=== PATIENT | male | born 1980 | race Caucasian/White ===

== ENCOUNTER → 2019-07-30 | Outpatient (CLI) | payer MEDICAID, SELFPAY | PROVIDERS: Family Provider Physician Assistant; Visit Provider Nurse Practitioner | DX: F43.12 Post-traumatic stress disorder, chronic (principal); F41.1 Generalized anxiety disorder; F41.0 Panic disorder [episodic paroxysmal anxiety] ==

== ENCOUNTER → 2019-08-21 08:51 | Outpatient (BNVA) | payer MEDICAID, SELFPAY | PROVIDERS: Family Provider Physician Assistant; Referring Provider Physician Assistant; Visit Provider Internal Medicine Rheumatology | DX: M10.9 Gout, unspecified (principal); Z79.899 Other long term (current) drug therapy; G47.30 Sleep apnea, unspecified; K21.0 Gastro-esophageal reflux disease with esophagitis | CPT/HCPCS: 36415; 80076; 82565; 84550; 85651; 86140; 99204 ==

== ENCOUNTER → 2019-08-21 10:05 | Outpatient (BNVA) | payer MEDICAID, SELFPAY | PROVIDERS: Family Provider Physician Assistant; Referring Provider Physician Assistant; Visit Provider Internal Medicine Rheumatology | DX: E79.0 Hyperuricemia without signs of inflammatory arthritis and tophaceous disease (principal); Z79.899 Other long term (current) drug therapy; G47.30 Sleep apnea, unspecified; K21.0 Gastro-esophageal reflux disease with esophagitis | CPT/HCPCS: 85025 ==

== ENCOUNTER 2019-09-12 11:00 | Emergency (ER) | payer MEDICAID, SELFPAY ==
[2019-09-12 11:19] VITALS: BP 141/112; PULSE 96; RESP 20; TEMP 36.5; O2SAT 95; BMI 43.4
--- NOTE | 2019-09-12 11:26 | ED_ITS ---
Entered by Forest Horan, acting as scribe for Severo Duron DO Sep 12, 2019 11:00 HPI - Extremity Problem General: Chief complaint: Extremity Problem,Nontraumatic Stated complaint: Right big toe pain Time Seen by Provider: 09/12/19 11:25 History of Present Illness: HPI Narrative: 39 yo male presents with right big toe pain. Pt states that he has gout issues. Exquisite pain began 2 days ago has been getting progressively worse. He recently had his allopurinol increase his primary care doctor. His initial medication list that list a Medrol Dosepak but he is actually not taking it per his report. MD Complaint: extremity pain Pain Consistency: constant Location: toe Quality: aching Radiation: none Exacerbating factors: nothing Associated symptoms: Reports no associated symptoms; Deny chest pain, fever(s) or rash Review of Systems Const: Denies: fever, chills, body aches, fatigue, malaise or night sweats Eyes: Denies: change in vision or blurry vision ENMT: Denies: throat pain, oral sores/lesions, dental pain, nasal discharge or nasal congestion Card: Denies: chest pain, palpitations, irregular heart rhythm, edema, syncope, shortness of breath on exertion, shortness of breath when lying down or leg pain with exertion Resp: Denies: shortness of breath, productive cough, non-productive cough or wheezing GI: Denies: abdominal pain, nausea, vomiting, vomiting blood, coffee grounds in vomit, difficulty swallowing, heartburn/indigestion, diarrhea, constipation, cramping, blood in stool or black tarry stool : Denies: flank pain, difficulty urinating, painful urination, urinary frequency, urinary urgency, urinary incontinence or blood in urine Musc: Denies: neck pain, back pain, extremity pain, extremity swelling, joint pain or joint swelling Skin/Breast: Denies: rash, itching or redness Neuro: Denies: headache, numbness in extremities, weakness in extremities, changes in sensation, lack of coordination, difficulty walking, frequent falls, dizziness, vertigo or confusion Psych: Denies: anxiety, depression, loss of interest, visual hallucinations, auditory hallucinations, suicidal ideation or homicidal ideation Endo: Denies: excessive urination, excessive thirst, tired all the time or cold intolerance Chandana/Lymph: Denies: easy bruising, easy bleeding, petechiae, enlarged lymph nodes or tender lymph nodes PFSH ED PFSH: Statuses (acute, chronic, etc) shown below reflect problem list status as previously entered and may not be historically accurate Medical History (Updated 09/12/19 @ 11:41 by Severo Duron DO) Gout flare (Acute) Gout, arthritis (Acute) High risk medication use (Acute) Hyperuricemia (Acute) Reflux esophagitis (Acute) Sleep apnea (Acute) Surgical History (Updated 09/12/19 @ 11:29 by Forest Horan) H/O toe surgery (Acute) Family History (Updated 08/07/19 @ 10:41 by Zahra Hernandez RN) Other Cancer Diabetes Hyperlipidemia Hypertension Denies family history of Anesthesia complication Bleeding disorder Social History (Updated 08/21/19 @ 09:19 by Briana Goncalves LPN) Smoking and tobacco status: never smoked Quit status (tobacco): quit date established Alcohol intake: never History of recent travel: No Physical Exam Const: COMMON NORMALS: average body habitus, oriented x3 and alert GENERAL APPEARANCE: cooperative, comfortable, well kempt and well developed NUTRITIONAL APPEARANCE: obese ORIENTATION/CONSCIOUSNESS: Yes awake, Yes oriented to person and Yes oriented to place HENMT: COMMON NORMALS: normocephalic, head/scalp atraumatic, EAC's normal, TM's normal bilaterally, external nose normal, moist oral mucous membranes and oropharynx normal HEAD & SCALP: normocephalic and atraumatic NOSE: external nose normal EXTERNAL AUDITORY CANAL: EAC's normal TYMPANIC MEMBRANE: TM's normal bilaterally MOUTH: oral and palatal mucosa normal, lip normal and tongue normal THROAT: posterior oropharynx normal and tonsils normal Eye: COMMON NORMALS: PERRL, EOMs intact bilaterally, conjunctivae normal and no scleral icterus CONJUNCTIVA: Yes conjunctivae normal PUPIL: Yes PERRL Neck/C-Spine: COMMON NORMALS: full ROM, no lymphadenopathy, supple, no meningeal signs and thyroid normal THYROID: thyroid normal and asymmetrical Lymph: LYMPHATIC: no lymphadenopathy noted Resp: COMMON NORMALS: normal respiratory effort, no retractions, no use of accessory muscles and clear to auscultation bilaterally AUSCULTATION: clear to auscultation bilaterally Cardio: COMMON NORMALS: regular rate and regular rhythm RATE: regular rate RHYTHM: regular rhythm HEART SOUNDS: no murmurs GI: COMMON NORMALS: normal to inspection, nondistended, normoactive bowel sounds, soft to palpation and no hepatosplenomegaly PALPATION: Yes soft and Yes no hepatosplenomegaly : COMMON NORMALS: Yes no CVA tenderness BLADDER/KIDNEY EXAM: Yes no CVA tenderness Back/Pelvis: COMMON NORMALS: no CVA tenderness LUMBAR SPINE/LOWER BACK: Yes normal to inspection Extremity: NARRATIVE EXTREMITY EXAM: Right first MP joint severe pain and tenderness mild erythema and swelling no deformity no ecchymosis. Neuro: COMMON NORMALS: oriented x3 SENSORIUM/ORIENTATION: Yes alert, Yes oriented to person and Yes oriented to place MENINGEAL SIGNS: Yes no meningeal signs Psych: APPEARANCE: Yes well kempt Skin: COMMON NORMALS: no rashes or lesions noted and skin turgor normal GENERAL SKIN EXAM: no rashes or lesions noted and turgor normal Course Vital Signs: Vital signs: Vital Signs Temperature 97.7 F 09/12/19 11:19 Pulse Rate 17 L 09/12/19 12:02 Respiratory Rate 89 H 09/12/19 12:02 Blood Pressure 139/98 09/12/19 12:02 Pulse Oximetry 94 09/12/19 12:02 Discharge Plan Discharge Patient Disposition: Home, Self-Care Clinical Impression: Gout, arthritis Condition: Stable Prescriptions: New prednisone 20 mg tablet 20 mg PO BID 5 Days Qty: 10 RF: 0 hydrocodone-acetaminophen 5-325 mg tablet 1 tab PO Q6H PRN (Reason: pain) Qty: 10 RF: 0 Held methylprednisolone [Medrol (Teddy)] 4 mg tablets,dose pack See Rx Instructions PO PER PKG DIR RF: 0 Hold Instructions: Resume on 09/17/19. hold while on prednisone - follow up with PCP to resume No Action omeprazole 40 mg capsule,delayed release(DR/EC) 40 mg PO BID RF: 0 Symbicort 160-4.5 mcg/actuation HFA aerosol inhaler 1 puff INHALATION BID PRNRF: 0 cholestyramine (with sugar) [Questran] 4 gram powder 4 gm PO DAILY RF: 0 hydroxyzine HCl 50 mg tablet 50 mg PO TID RF: 0 quetiapine [Seroquel] 100 mg tablet 100 mg PO QDAY RF: 0 prednisone 10 mg tablet 20 mg PO QDAY 5 Days Qty: 10 RF: 2 allopurinol 100 mg tablet 100 mg PO DAILY Qty: 30 RF: 1 allopurinol 300 mg tablet 300 mg PO DAILY Qty: 30 RF: 1 colchicine 0.6 mg tablet 0.6 mg PO BID Qty: 60 RF: 3 Discharge Orders: Discharge Order (Routine); Ordered 09/12/19 Ordered By: Severo Duron Referrals: Juana Landeros PA [Family Provider] - Activity Restrictions/Additional Instructions: Follow-up with your PCP early next week. Return if has problems. Discharge Date/Time: 09/12/19 12:02 Coding Level of Care Code ED Bingo Clerk for Chg Fwd Exam Problem Focused The documentation recorded by the Aung pate Kialy, accurately reflects the service I personally performed and the decisions made by Domi jones Curtis L, DO Sep 12, 2019 11:00
[2019-09-12 11:40] VITALS: RESP 18
[2019-09-12 12:02] VITALS: BP 139/98; PULSE 17; RESP 89; O2SAT 94
== END 2019-09-12 12:02 | disposition home or self-care (01) ==
PROVIDERS: Emergency Provider Family Medicine; Family Provider Physician Assistant
DX: M10.9 Gout, unspecified (principal)
CPT/HCPCS: 96372; 99281; 99283; J2930

== ENCOUNTER → 2019-11-20 07:52 | Outpatient (BNVA) | payer MEDICAID, SELFPAY | PROVIDERS: Family Provider Physician Assistant; Visit Provider Nurse Practitioner | DX: F43.12 Post-traumatic stress disorder, chronic (principal); F41.1 Generalized anxiety disorder; F41.0 Panic disorder [episodic paroxysmal anxiety] | CPT/HCPCS: 99214 ==

== ENCOUNTER → 2020-01-04 09:06 | Outpatient (BNVA) | payer MEDICAID, SELFPAY | PROVIDERS: Family Provider Physician Assistant; Visit Provider Nurse Practitioner | DX: F43.12 Post-traumatic stress disorder, chronic (principal); F41.1 Generalized anxiety disorder; F41.0 Panic disorder [episodic paroxysmal anxiety] | CPT/HCPCS: 99213 ==

== ENCOUNTER → 2020-03-25 08:27 | Outpatient (BNVA) | payer MEDICAID, SELFPAY | PROVIDERS: Family Provider Physician Assistant; Visit Provider Nurse Practitioner | DX: F43.12 Post-traumatic stress disorder, chronic (principal); F41.1 Generalized anxiety disorder; F41.0 Panic disorder [episodic paroxysmal anxiety]; F12.20 Cannabis dependence, uncomplicated | CPT/HCPCS: 99213 ==

== ENCOUNTER 2020-09-09 11:29 | Emergency (ER) | payer MEDICAID, SELFPAY ==
--- NOTE | 2020-09-09 11:40 | W.ED.GENADLT ---
HPI - General Adult General: Chief complaint: General Medical Stated complaint: Gout Time Seen by Provider: 09/09/20 11:33 Review of Systems General: Reports: 10 or more systems reviewed and unremarkable except in HPI and below Musc: Reports: extremity pain, joint pain, joint swelling, joint redness and joint warmth PFSH ED PFSH: Medical History Cannabis dependence, uncomplicated Generalized anxiety disorder Gout flare Gout, arthritis High risk medication use Hyperuricemia Panic disorder [episodic paroxysmal anxiety] Post-traumatic stress disorder, chronic Reflux esophagitis Sleep apnea Surgical History H/O toe surgery Family History Other Cancer Diabetes Hyperlipidemia Hypertension Denies family history of Anesthesia complication Bleeding disorder Social History Smoking and tobacco status: never smoked Quit status (tobacco): quit date established Alcohol intake: never History of recent travel: No Physical Exam Const: COMMON NORMALS: no acute distress, patient oriented x3, no limitations and alert GENERAL APPEARANCE: cooperative and comfortable ORIENTATION/CONSCIOUSNESS: Yes awake, Yes oriented to person, Yes oriented to place and Yes oriented to time HENMT: COMMON NORMALS: normocephalic, atraumatic, external ears normal, EAC's normal, TM's normal bilaterally and Normal external nose present HEAD & SCALP: normal to inspection, normocephalic and atraumatic FACE & SINUS: normal facial exam, sinuses nontender and face symmetric NOSE: Normal external nose present, Normal nares present and No nasal discharge present EXTERNAL EAR: Yes external ears normal EXTERNAL AUDITORY CANAL: EAC's normal TYMPANIC MEMBRANE: TM's normal bilaterally MOUTH: Normal oral and palatal mucosa present, lip normal and tongue normal THROAT: posterior oropharynx normal, tonsils normal and uvula midline Eye: COMMON NORMALS: Equal, round and reactive pupils present, EOMs intact bilaterally and conjunctivae normal GENERAL EYE: appearance normal, both eyes and all related structures and normal light reflex EYELID: eyelids normal CONJUNCTIVA: Yes conjunctivae normal PUPIL: Yes Equal, round and reactive pupils present EOM: Yes EOM abnormal DIRECT OPHTHALMOSCOPY: Yes normal light reflex Neck/C-Spine: COMMON NORMALS: full ROM, no lymphadenopathy, supple, no meningeal signs, no JVD and Thyroid normal GENERAL: Yes normal visual inspection THYROID: Thyroid normal CERVICAL SPINE: Yes cervical ROM normal and Yes normal cervical lordosis Lymph: LYMPHATIC: no lymphadenopathy noted Chest: COMMONS NORMALS: normal inspection of the chest and normal palpation of entire chest wall Resp: COMMON NORMALS: normal respiratory effort, No retractions and clear to auscultation bilaterally AUSCULTATION: clear to auscultation bilaterally Cardio: COMMON NORMALS: no JVD, regular rate, regular rhythm, S1 normal heart sound present, S2 normal heart sound present, No gallops present (Cardio), No clicks present (Cardio), No murmurs present (Cardio), No rub (Cardio) and Peripheral pulses 2+ throughout RATE: regular rate RHYTHM: regular rhythm HEART SOUNDS: S1 normal heart sound present and S2 normal heart sound present PERIPHERAL PULSES: Peripheral pulses 2+ throughout GI: COMMON NORMALS: Normal to inspection, nondistended, normoactive bowel sounds present, Soft to palpation, non-tender and no masses PALPATION: Yes Soft to palpation : COMMON NORMALS: Yes no CVA tenderness BLADDER/KIDNEY EXAM: Yes no CVA tenderness Back/Pelvis: COMMON NORMALS: no CVA tenderness, thoracic and lumbar spine normal to inspection, no thoracic nor lumbar tenderness and thoraco-lumbar ROM normal Extremity: COMMON NORMALS: normal to inspection, full ROM, capillary refill normal, no joint enlargement, no clubbing, cyanosis or edema, no calf tenderness and no pedal edema GENERAL: Yes normal exam except as noted LEFT LOWER EXTREMITY: Yes foot & digits Left foot and digits: Yes inspection (redness, warmth, swelling) Neuro: COMMON NORMALS: patient oriented x3, moves all extremities, no focal motor deficits, no sensory deficits noted and gait normal SENSORIUM/ORIENTATION: Yes alert, Yes oriented to person, Yes oriented to place and Yes oriented to time MENINGEAL SIGNS: Yes no meningeal signs Psych: COMMON NORMALS: mental status grossly normal, Normal thought process present, cooperative, normal affect, speech normal and activity/motor behavior normal SPEECH: Yes normal speech THOUGHT PROCESS: Normal thought process present Skin: COMMON NORMALS: no rashes or lesions noted, no wounds and turgor normal GENERAL SKIN EXAM: no rashes or lesions noted and turgor normal Course ED course: Pt presents with gout flare up to the left foot. He ran out of his allpurinol and needs to reestablish a PCP in this area. We will prescribe his allpurinol and help him to establish a PCP. Will also give colchicine and decadron to help alleviate his acute symptoms. Vital Signs: Vital signs: Vital Signs Temperature 98.4 F 09/09/20 11:42 Pulse Rate 86 09/09/20 11:42 Respiratory Rate 14 09/09/20 11:42 Blood Pressure 141/91 09/09/20 11:42 Pulse Oximetry 97 09/09/20 11:42 Discharge Plan Discharge Patient Disposition: Home Clinical Impression: Gout, arthritis Condition: Stable Prescriptions: New allopurinol 100 mg tablet 100 mg PO DAILY Qty: 20 RF: 0 No Action methylprednisolone [Medrol (Teddy)] 4 mg tablets,dose pack See Rx Instructions PO PER PKG DIR RF: 0 Hold Instructions: Resume on 09/17/19. hold while on prednisone - follow up with PCP to resume omeprazole 40 mg capsule,delayed release(DR/EC) 40 mg PO BID RF: 0 Symbicort 160-4.5 mcg/actuation HFA aerosol inhaler 1 puff INHALATION BID PRNRF: 0 cholestyramine (with sugar) [Questran] 4 gram powder 4 gm PO DAILY RF: 0 prednisone 10 mg tablet 20 mg PO QDAY 5 Days Qty: 10 RF: 2 quetiapine [Seroquel] 100 mg tablet 100 mg PO .COMPLEX Qty: 90 RF: 1 allopurinol 100 mg tablet 100 mg PO DAILY Qty: 30 RF: 1 allopurinol 300 mg tablet 300 mg PO DAILY Qty: 30 RF: 1 colchicine 0.6 mg tablet 0.6 mg PO BID Qty: 60 RF: 3 hydroxyzine HCl 50 mg tablet 100 mg PO TID PRN (Reason: anxiety) Qty: 180 RF: 0 hydrocodone-acetaminophen 5-325 mg tablet 1 tab PO Q6H PRN (Reason: pain) Qty: 10 RF: 0 Discharge Orders: Discharge ED (Routine); Ordered 09/09/20 Ordered By: Christal Bowles Discharge Diet: Usual diet Discharge Activity: Increase activity as tolerated Activity Restrictions/Additional Instructions: Increase water intake, decrease soda intake. Supplementation with Tumeric may be beneficial to help as a natural anti inflammatory. Try to avoid large amounts of meat, especially seafood and red meat. Ensure a clean diet with lots of vegetables. Think, eat the rainbow! Avoid high starchy foods like potatoes and avoid alcohol. Follow up with PCP and bariatric physician if you feel that is a good step in your overall health. Coding Level of Care Code ED Item Processing Clerk for Tobias Alvarez
[2020-09-09 11:42] VITALS: BP 141/91; PULSE 86; RESP 14; TEMP 36.9; O2SAT 97; BMI 43.4
[2020-09-09] MEDS: dexamethasone 10 mg/mL INJ IM (12:25)
[2020-09-09] MEDS: colchicine 0.6 mg Tablet 1.2 MG PO (12:25)
[2020-09-09] MEDS: colchicine 0.6 mg Tablet PO (12:34)
--- NOTE | 2020-09-09 13:51 | DCPLANNER ---
real estate operations manager was given message to schedule PCP appointment. real estate operations manager called patient and patient stated he would call [facility] to schedule appt with Dr. Beauchamp. real estate operations manager was also given message to schedule follow up with general surgery. real estate operations manager emailed pt's information to both Ana Lilia and Ale. Pt's information will be printed and reviewed. Clinic will call pt with appt information.
--- NOTE | 2020-09-10 09:40 | DCPLANNER ---
Patient has a follow up appointment scheduled for , September 18, [address] at 2:[address] Ashby. Clinic will call patient with appointment information.
--- NOTE | 2020-09-16 11:32 | DCPLANNER ---
subcontract manager received message to schedule appointment with Dr. Ashby for bariatric surgery. subcontract manager emailed Anna. They will follow up with patient and provide patient with appointment information.
--- NOTE | 2020-10-22 13:07 | DCPLANNER ---
Patient had a followup appointment scheduled with general surgery - appointment was rescheduled for a later date.
== END 2020-09-09 12:37 | disposition home or self-care (01) ==
PROVIDERS: Emergency Provider Nurse Practitioner Family
DX: M10.9 Gout, unspecified (principal); Z79.52 Long term (current) use of systemic steroids
CPT/HCPCS: 12345; 96372; 99281; 99283; J1100

== ENCOUNTER 2020-11-02 12:14 | Emergency (ER) | payer MEDICAID, SELFPAY ==
[2020-11-02 12:18] VITALS: BP 131/91; PULSE 100; RESP 16; TEMP 36.2; O2SAT 98; BMI 43.4
--- NOTE | 2020-11-02 12:35 | XRR_ITS ---
PROCEDURE INFORMATION: Exam: XR Lumbosacral Spine Exam date and time: 11/02/2020 1:37 PM Age: 40 years old Clinical indication: Injury or trauma; Fall; Blunt trauma (contusions or hematomas); Additional info: Fell, lbp TECHNIQUE: Imaging protocol: XR of the lumbosacral spine. Views: 2 or 3 views. COMPARISON: CT abdomen pelvis w con* [id number] 01/02/2019 7:25 PM FINDINGS: Bones/joints: Normal. No acute fracture. Normal alignment. Soft tissues: Unremarkable. XR/XR lumbar spine 2-3V* [id number] IMPRESSION: No acute findings.
--- NOTE | 2020-11-02 12:35 | XRR_ITS ---
PROCEDURE INFORMATION: Exam: XR Right Hip Exam date and time: 11/02/2020 12:36 PM Age: 40 years old Clinical indication: Injury or trauma; Fall; Blunt trauma (contusions or hematomas); Right; Hip; Additional info: Fall, RT hip pain TECHNIQUE: Imaging protocol: XR Right hip. Views: 2 or 3 views hip with pelvis when performed. COMPARISON: CT abdomen pelvis w con* [id number] 01/02/2019 7:25 PM FINDINGS: Bones/joints: Unremarkable. No acute fracture. Soft tissues: Unremarkable. XR/XR hip RT 2-3V wo/w pel* [id number] IMPRESSION: No acute findings.
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
[2020-11-02] MEDS: orphenadrine 30 mg/mL Inj 2 mL 60 MG IM (13:02)
[2020-11-02] MEDS: acetaminophen 500 mg Tablet 1000 MG PO (13:02)
[2020-11-02] MEDS: lidocaine 5% Patch 1 PATCH TOPICAL (14:20)
[2020-11-02 14:23] VITALS: BP 106/71; PULSE 83; RESP 16; O2SAT 97
== END 2020-11-02 14:38 | disposition home or self-care (01) ==
PROVIDERS: Emergency Provider Nurse Practitioner Family; PCP Physician Assistant
DX: M54.41 Lumbago with sciatica, right side (principal); M54.10 Radiculopathy, site unspecified
CPT/HCPCS: 72100; 73502; 96372; 99283; J2360

== ENCOUNTER 2021-01-06 20:00 | Outpatient (CLI) | payer MEDICAID, SELFPAY | END 2021-01-06 20:01 | disposition home or self-care (01) | LOC: SLEEP 01-07 09:06 | PROVIDERS: PCP Physician Assistant; Visit Provider Physician Assistant | DX: G47.10 Hypersomnia, unspecified (principal); G47.33 Obstructive sleep apnea (adult) (pediatric); R09.02 Hypoxemia | CPT/HCPCS: 95810 ==

== ENCOUNTER 2021-03-13 01:39 | Inpatient (IN) | payer MEDICAID, SELFPAY ==
[2021-03-13] VITALS (64 sets, daily range): BP systolic 105–162; BP diastolic 75–118; PULSE 60–99; RESP 10–27; TEMP 36.7–37.1; O2SAT 90–99; BMI 42.5; BMI 43.8
--- NOTE | 2021-03-13 02:54 | XRR_ITS ---
PROCEDURE INFORMATION: Exam: XR Chest Exam date and time: 03/13/2021 2:54 AM Age: 41 years old Clinical indication: Sternal or substernal pain; Patient HX: Substernal chest pain this a. M. TECHNIQUE: Imaging protocol: XR of the chest. Views: 1 view. Total images: 1 COMPARISON: CR Chest 1 [place] [id number] 11/21/2018 7:32 AM FINDINGS: Lungs: Unremarkable. No consolidation. Pleural spaces: Unremarkable. No pleural effusion. No pneumothorax. Heart/Mediastinum: Unremarkable. No cardiomegaly. Bones/joints: Unremarkable. XR/XR chest 1V portable [id number] IMPRESSION: No acute findings.
--- NOTE | 2021-03-13 02:55 | ECG_ITS ---
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1980 Requested By: Claudette Mccurdy Order Number: [id number] Reading MD: HORTENCIA PRITCHARD Measurements Intervals [place] Rate: 76 P: 45 SC: 166 QRS: 41 QRSD: 116 T: 73 QT: 376 QTc: 425 Interpretive Statements SINUS RHYTHM LOW QRS VOLTAGE IN PRECORDIAL LEADS [QRS DEFLECTION < 1.0 mV IN CHEST LEADS] MODERATE INTRAVENTRICULAR CONDUCTION DELAY [110+ ms QRS DURATION] Compared to ECG 03/13/2021 04:06:05 No significant changes Electronically Signed On 03-13-2021 19:27:16 CDT by HORTENCIA PRITCHARD [id number]
[2021-03-13 03:14] LABS: Basophils # 0.1 10^3/uL (0.0-0.1); Basophils % 0.8 %; Eosinophils # 0.1 10^3/uL (0.0-0.8); Hematocrit 49.3 % (42.0-52.0); Lymphocytes # 3.8 10^3/uL (0.8-4.8); Lymphocytes % 32.8 %; Mean Corpuscular HGB Conc 32.5 g/dL (30.0-36.0); Mean Corpuscular Hemoglobin 29.1 pg (28.0-34.0); Mean Corpuscular Volume 89.6 fL (80-94); Mean Platelet Volume 11.5 fL (7.4-10.4); Monocytes # 1.3 10^3/uL (0.2-0.9); Monocytes % 11.1 %; Nucleated Red Blood Cells % 0 %; Platelet Count 277 10^3/cmm (130-400); Red Cell Distribution Width 13.5 % (12.1-15.1); White Blood Count 11.7 10^3/uL (4.0-10.0)
[2021-03-13 03:32] LABS: Alanine Aminotransferase 48 U/L (0-41); Albumin Level 4.3 g/dL (3.5-5.2); Alkaline Phosphatase 79 IU/L (40-130); Anion Gap 13.8 (5-19); Aspartate Amino Transferase 33 U/L (0-40); Blood Urea Nitrogen 10 mg/dL (6-20); Calcium 8.6 mg/dL (8.5-10.5); Carbon Dioxide 29 mmol/L (22-29); Chloride 101 mmol/L (98-107); Globulin 2.2 g/dL (1.3-4.6); Glucose 108 mg/dL (65-115); Osmolality Calculated 290 mOsm/kg (285-295); Potassium 3.8 mmol/L (3.5-5.1); Sodium 140 mmol/L (136-145); Total Bilirubin 0.2 mg/dL (0.15-1.2); Total Protein 6.5 g/dL (6.6-8.7)
[2021-03-13 03:34] LABS: Troponin(5th) Baseline 6 ng/L (0-15)
--- NOTE | 2021-03-13 03:46 | W.ED.GENADLT ---
HPI - General Adult General: Chief complaint: ER Hold Stated complaint: CP/SOB/Jaw Pain Time Seen by Provider: 03/13/21 01:58 History of Present Illness: HPI narrative: CC: Chest Pain HPI: This is a [41] yo patient w/ family hx of cardiac disease, positive stress from [address] Pollack presenting to the ED w/ acute onset intermittent substernal chest pain x [2] hours,+N/V. Patient is due for stent placement on 03/25/2021/ Pain is not tearing in nature and does not radiate to the back. Endorse nausea and vomiting or decreased PO intake. Denies any recent sympathomimetic drug use. Patient denies any cough. Denies palpitations, syncope symptoms. Pain not positional. Norecent immobility, surgery, unilateral leg swelling, or prior PE. Patient denies any orthopnea, paroxysmal nocturnal dyspnea, weight gain, or increased leg swellings. Onset: 2 hrs ago Duration: ongoing for the last 2 hrs Location: home Severity: moderate Review of Systems Narrative: Constitutional: No fever, no chills. HEENT: No vision changes, no sore throat. CV: +chest pain, no palpitations. PULM: No cough, no dyspnea. GI: No abdominal pain, + N/+V/-D. : No dysuria, no frequency, no hematuria. MSKEL: No arthralgias, no edema. SKIN: No new rashes, no lesions. NEURO: No headache, no focal weakness. HEME: No easy bleeding or bruising. PSYCH: No change in mood or affect. [facility] ED PFSH: Medical History (Updated 03/13/21 @ 05:12 by Елена Menjivar MD) Cannabis dependence, uncomplicated Chronic bilateral low back pain with bilateral sciatica Depression with anxiety Generalized anxiety disorder GERD (gastroesophageal reflux disease) Gout Gout flare Gout, arthritis High risk medication use Hyperuricemia Morbid obesity Panic disorder [episodic paroxysmal anxiety] Post-traumatic stress disorder, chronic PTSD (post-traumatic stress disorder) Reflux esophagitis Sleep apnea Surgical History (Updated 03/13/21 @ 05:12 by Елена Menjivar MD) H/O toe surgery History of cholecystectomy History of circumcision History of esophagogastroduodenoscopy (EGD) (~01/2019) History of sinus surgery Hx of appendectomy Hx of tonsillectomy Family History Other Cancer Diabetes Hyperlipidemia Hypertension Denies family history of Anesthesia complication Bleeding disorder Social History Smoking and tobacco status: former smoker Quit status (tobacco): quit date established Alcohol intake: never History of recent travel: No Physical Exam Narrative: EXAM NARRATIVE: Head: Atraumatic, normocephalic Eyes: PERRL, EOMI, conjunctiva without injection ENT: Throat without erythema, lesions or exudate, MMM NECK: Supple, trachea midline, no JVD LUNGS: LCTA CV: RRR, S1,S2, no murmurs, rubs, gallops. 2+ peripheral pulses in UEs ABDOMEN: Soft, nontender, nondistended, BS x4, no rigidity, no guarding, no rebound EXTREMITY: Normal ROM, no pitting edema, no calf tenderness to palpation SKIN: No rash or erythema NEURO: Awake and alert. No focal motor deficits. PSYCH: Normal mood and affect. Course Vital Signs: Vital signs: Vital Signs Temperature 98.1 F 03/13/21 01:48 Pulse Rate 70 03/13/21 05:41 Respiratory Rate 12 03/13/21 05:41 Blood Pressure 105/86 03/13/21 05:41 Pulse Oximetry 97 03/13/21 05:41 MDM - General Adult MDM Narrative: Medical decision making narrative: 41yo patient w/ familg hx of cardiac diseases to the ED With acute substernal chest pain X 2 hrs with hx of similar prior pain. Currently chest pain free. Given History And Exam today I have moderate to high suspicion for ACS/UA/NSTEMI. Today, I have no suspicion for pneumothorax, pneumonia, pulmonary embolus, tamponade, aortic dissection or other emergent problem as a cause for this presentation. ECG did not show any signs of acute STEMI. Workup: ECG, CXR, CBC, BMP, Troponin Intervention: ASA 325mg Findings: ECG: NSR, RR opf 92, GA/QRS/QT wnl, No overt evidence of STEMI, no hyperacute T waves, localizable STD or T wave inversions. No evidence of Brugada?s sign, delta wave, epsilon wave, significantly prolonged QTc, or malignant arrhythmia. No Q waves. Troponin: Negative x 1 Other Labs unremarkable for emergent problems. [4:00] On reassessment, the patient is currently chest pain free. S/p aspirin 325mg. Will defer antiplatelet and anticoagulation to the inpatient team. Pending repeat troponin. HDS, AAOx3, no signs of respiratory distress, without refractory chest pain, no signs of malignant dysrhythmia on clinical medical transcriptionist (VT/VF). Disposition: Inpatient admission. Lab Data: Labs: Lab Results 03/13/21 03/13/21 03/13/21 Range/Units 02:03 02:03 02:03 WBC 11.7 H (4.0-10.0) 10^3/ uL RBC 5.50 H (4.1-5.3) 10^6/u L Hgb 16.0 (11.7-16.6) g/dL Hct 49.3 (42.0-52.0) % MCV 89.6 (80-94) fL MCH 29.1 (28.0-34.0) pg MCHC 32.5 (30.0-36.0) g/dL RDW 13.5 (12.1-15.1) % Plt Count 277 (130-400) 10^3/c mm MPV 11.5 H (7.4-10.4) fL Neut % (Auto) 54.0 % Lymph % (Auto) 32.8 % [place] % (Auto) 11.1 % Eos % (Auto) 1.0 % Baso % (Auto) 0.8 % Neut # (Auto) 6.30 (1.8-7.7) 10^3/u L Lymph # (Auto) 3.8 (0.8-4.8) 10^3/u L [place] # (Auto) 1.3 H (0.2-0.9) 10^3/u L Eos # (Auto) 0.1 (0.0-0.8) 10^3/u L Baso # (Auto) 0.1 (0.0-0.1) 10^3/u L Nucleated RBC % (a uto) 0 % Nucleated RBCs # 0.0 /100WBC D-Dimer 0.33 (0-0.59) ug/mIFE U Sodium 140 (136-145) mmol/L Potassium 3.8 (3.5-5.1) mmol/L Chloride 101 (98-107) mmol/L Carbon Dioxide 29 (22-29) mmol/L Anion Gap 13.8 (5-19) BUN 10 (6-20) mg/dL Creatinine 0.9 (0.7-1.2) mg/dL GFR Calculation 93.0 (90-130) mL/min Glucose 108 (65-115) mg/dL Estimat Average Gl ucose Hemoglobin A1c (4.0-6.0) % Calculated Osmolal ity 290 (285-295) mOsm/k g Calcium 8.6 (8.5-10.5) mg/dL Total Bilirubin 0.2 (0.15-1.2) mg/dL AST 33 (0-40) U/L ALT 48 H (0-41) U/L Alkaline Phosphata se 79 (40-130) IU/L Troponin T Baselin e (0-15) ng/L Total Protein 6.5 L (6.6-8.7) g/dL Albumin 4.3 (3.5-5.2) g/dL Globulin 2.2 (1.3-4.6) g/dL 03/13/21 03/13/21 Range/Units 02:03 02:03 WBC (4.0-10.0) 10^3/ uL RBC (4.1-5.3) 10^6/u L Hgb (11.7-16.6) g/dL Hct (42.0-52.0) % MCV (80-94) fL MCH (28.0-34.0) pg MCHC (30.0-36.0) g/dL RDW (12.1-15.1) % Plt Count (130-400) 10^3/c mm MPV (7.4-10.4) fL Neut % (Auto) % Lymph % (Auto) % [place] % (Auto) % Eos % (Auto) % Baso % (Auto) % Neut # (Auto) (1.8-7.7) 10^3/u L Lymph # (Auto) (0.8-4.8) 10^3/u L [place] # (Auto) (0.2-0.9) 10^3/u L Eos # (Auto) (0.0-0.8) 10^3/u L Baso # (Auto) (0.0-0.1) 10^3/u L Nucleated RBC % (a uto) % Nucleated RBCs # /100WBC D-Dimer (0-0.59) ug/mIFE U Sodium (136-145) mmol/L Potassium (3.5-5.1) mmol/L Chloride (98-107) mmol/L Carbon Dioxide (22-29) mmol/L Anion Gap (5-19) BUN (6-20) mg/dL Creatinine (0.7-1.2) mg/dL GFR Calculation (90-130) mL/min Glucose (65-115) mg/dL Estimat Average Gl ucose 114 Hemoglobin A1c 5.6 (4.0-6.0) % Calculated Osmolal ity (285-295) mOsm/k g Calcium (8.5-10.5) mg/dL Total Bilirubin (0.15-1.2) mg/dL AST (0-40) U/L ALT (0-41) U/L Alkaline Phosphata se (40-130) IU/L Troponin T Baselin e 6 (0-15) ng/L Total Protein (6.6-8.7) g/dL Albumin (3.5-5.2) g/dL Globulin (1.3-4.6) g/dL Discharge Plan Discharge Patient Disposition: Admitted As Inpatient Admit Provider: Елена Menjivar Clinical Impression: Chest pain Condition: Stable Coding Level of Care Code ED Human Resources Talent Manager for Tobias Alvarez
[2021-03-13] MEDS: aspirin 325 mg Tablet PO (03:53)
[2021-03-13 04:33] LABS: Troponin 5 2HR Delta 0 ABS# (0-10)
--- NOTE | 2021-03-13 04:55 | ECG_ITS ---
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1980 Requested By: Claudette Mccurdy Order Number: [id number] Reading MD: HORTENCIA PRITCHARD Measurements Intervals [place] Rate: 92 P: 66 MD: 166 QRS: 53 QRSD: 99 T: 71 QT: 352 QTc: 436 Interpretive Statements SINUS RHYTHM LOW QRS VOLTAGE IN PRECORDIAL LEADS [QRS DEFLECTION < 1.0 mV IN CHEST LEADS] WARNING: DATA QUALITY MAY AFFECT INTERPRETATION Compared to ECG 11/21/2018 07:03:23 Low QRS voltage now present Intraventricular conduction delay no longer present Electronically Signed On 03-13-2021 19:28:18 CDT by HORTENCIA PRITCHARD [id number]
--- NOTE | 2021-03-13 05:07 | P.HP_ITS ---
Providers/Chief Complaint Primary Care Provider: Juana Landeros Chief Complaint: CP/SOB/Jaw Pain History of Present Illness Michael Mckinney is a 41 year old male with obesity, HTN, positive stress from 3 months ago from [place], followed by Dr Boland as outpatient for chest discomfort, exertion shortness of breath and orthopnea. He was planned for outpatient cardiac cath on 03/25. 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 Denies palpitations, syncope. EKG without acute ST-T wave changes, trop baseline 6, 2 hr delta not significant. Review of Systems General: Reports: 10 or more systems reviewed and unremarkable except in HPI and below Const: Denies: fever(s), chills or body aches Eyes: Denies: change in vision, blurry vision or photophobia ENMT: Reports: hoarseness; Denies: throat pain, enlarged tonsils, odynophagia or nasal congestion Card: Denies: chest pain, palpitations, irregular heart rhythm, edema, swelling of feet/ankles, lightheadedness, pre-syncope, dyspnea on exertion or orthopnea Resp: Denies: dyspnea, productive cough, non-productive cough, wheezing, stridor, pain on inspiration, change in phlegm color, hemoptysis or chest congestion GI: Denies: abdominal pain, nausea, vomiting, hematemesis, coffee ground emesis, dysphagia, heartburn, diarrhea, constipation, GI cramping, change in stool character, hematochezia or melena : Denies: flank pain, dysuria, urinary frequency, urinary urgency, urinary hesitancy or hematuria Musc: Denies: neck pain, back pain, extremity pain, joint swelling, joint warmth or deformity Neuro: Denies: headache(s), numbness in extremities, weakness in extremities, sensory changes, difficulty walking, frequent falls, dizziness, vertigo, behavioral changes, Slurred speech present or seizure-like activity Psych: Denies: anxiety, depression, suicidal ideation or homicidal ideation Endo: Denies: polyuria, polydipsia, tired all the time, cold intolerance or ho t flashes Chandana/Lymph: Denies: easy bruising or easy bleeding Medications/Allergies Home Medications Medication Instructions Recorded Confirmed Last Taken Type allopurinol 100 mg PO DAILY 11/02/20 03/06/21 Unknown History clonidine HCl 0.1 mg PO BEDTIME 11/02/20 03/06/21 Unknown History divalproex See Rx Instructions .ROUTE .COMPLEX 11/02/20 03/06/21 Unknown History hydroxyzine pamoate 25 mg PO BID PRN 11/02/20 03/06/21 Unknown History lidocaine [Lidoderm] 1 patch TOPICAL BID PRN #30 ea 11/02/20 03/06/21 Unknown Rx lurasidone [Latuda] 20 mg PO DAILY 11/02/20 03/06/21 Unknown History lurasidone [Latuda] 40 mg PO DAILY 11/02/20 03/06/21 Unknown History methocarbamol 750 mg PO Q6H #10 tab 11/02/20 03/06/21 Unknown Rx metoprolol tartrate 25 mg tablet 25 mg PO BID #180 tab 01/08/21 03/06/21 Unknown Rx Allergies Allergy/AdvReac Type Severity Reaction Status Date / Time indomethacin Allergy Severe kidnesy Verified 03/06/21 12:56 shut down PFSH Acute PFSH: Medical History (Updated 03/13/21 @ 05:12 by Елена Menjivar MD) Cannabis dependence, uncomplicated Chronic bilateral low back pain with bilateral sciatica Depression with anxiety Generalized anxiety disorder GERD (gastroesophageal reflux disease) Gout Gout flare Gout, arthritis High risk medication use Hyperuricemia Morbid obesity Panic disorder [episodic paroxysmal anxiety] Post-traumatic stress disorder, chronic PTSD (post-traumatic stress disorder) Reflux esophagitis Sleep apnea Surgical History (Updated 03/13/21 @ 05:12 by Елена Menjivar MD) H/O toe surgery History of cholecystectomy History of circumcision History of esophagogastroduodenoscopy (EGD) (~01/2019) History of sinus surgery Hx of appendectomy Hx of tonsillectomy Family History Other Cancer Diabetes Hyperlipidemia Hypertension Denies family history of Anesthesia complication Bleeding disorder Social History Smoking and tobacco status: former smoker Quit status (tobacco): quit date established Alcohol intake: never History of recent travel: No Vitals/I&O/Wt Last Vital Signs Temp 98.1 F 03/13/21 01:48 Pulse 75 03/13/21 03:54 Resp 12 03/13/21 03:54 BP 131/104 03/13/21 03:54 Pulse Ox 97 03/13/21 03:54 Weight last 48 hrs Weight 142.428 kg Physical Exam Narrative: EXAM NARRATIVE: General: No acute distress, AO x3 HEENT: PERRLA, pupils bilaterally equal and reactive, pallors not present Chest: Normal vesicular breath sounds, no added sounds, equal good air entry bilaterally CVS: S1-S2 regular, no murmurs, no tachycardia, no gallops, no rubs Abdomen: Soft, nontender, no organomegaly, bowel sounds present Neuro: No focal deficits, no facial deformity, AO x3, power 5/5 in all limbs Data : 03/13/21 02:03 03/13/21 02:03 A&P Assessment and plan (1) Chest pain: concern for anginal chest pain in patient with recently abnormal stress test with multiple cardiac risk factors ASA 81, atorvastatin 40mg po daily continue metoprolol lipid panel, hba1c cardiology consult in am Status: Acute Attestations Medical Necessity Statement*: unstable angina, abnormal stress test, cardiology consult in am Coding Level of Care Code Acute Roofer Vinyl Coating for Tobias Alvarez Diagnoses Chest pain R07.9
[2021-03-13] MEDS: enoxaparin 40 mg/0.4 mL Syringe SUBCUT (05:35)
[2021-03-13 05:58] LABS: Chol HDL Ratio 6.06 mg/dL (1.0-5.00); Cholesterol 188 mg/dL (0-200); HDL Cholesterol 31 mg/dL (60-100); LDL Cholesterol Calculated 99 mg/dL (50-129); LDL HDL Ratio 3.19 RATIO (0.00-3.22); Triglycerides 290 mg/dL (0-150)
[2021-03-13 05:59] LABS: Estmated Average Glucose 114; Hemoglobin A1C 5.6 % (4.0-6.0)
[2021-03-13] MEDS: methocarbamol 750 mg Tablet PO ×3 (05:59→17:20)
[2021-03-13 07:32] LABS: D Dimer 0.33 ug/mIFEU (0-0.59)
[2021-03-13 08:45] LABS: Troponin 5 6HR Delta 0 ng/L (0-12)
--- NOTE | 2021-03-13 08:55 | ECG_ITS ---
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: : 1980 Requested By: Claudetet Mccurdy Order Number: [id number] Reading MD: HORTENCIA PRITCHARD Measurements Intervals Helen Rate: 77 P: 45 CA: 158 QRS: 33 QRSD: 113 T: 71 QT: 367 QTc: 418 Interpretive Statements SINUS RHYTHM LOW QRS VOLTAGE IN PRECORDIAL LEADS [QRS DEFLECTION < 1.0 mV IN CHEST LEADS] MODERATE INTRAVENTRICULAR CONDUCTION DELAY [110+ ms QRS DURATION] INTERPRETATION BASED ON A DEFAULT AGE OF 40 YEARS Compared to ECG 03/13/2021 04:07:20 No significant changes Electronically Signed On 03-13-2021 19:27:39 CDT by HORTENCIA PRITCHARD [email or web address] Enginesyalobusha general hospitalAttune Liveshel[facility].[employer]/store/NU/[id number] f
--- NOTE | 2021-03-13 09:15 | PC.PHAR ---
PT STATES HIS TAKES CARE OF HIS MEDICATIONS-PTS HIREN STATES THE PT TAKES THE MEDICATIONS ENTERED-PTS STATES THE PT NEVER GOT METOPROLOL TARTRATE FILLED RX WRITTEN IN 01/08/21 25MG BID OUMOU STATES THEY HAVENT FILLED RX THEY HAVE RX ON HOLD
[2021-03-13] MEDS: aspirin 81 mg EC Tablet PO (09:54)
[2021-03-13] MEDS: metoprolol tartrate 25 mg Tablet PO ×2 (09:54→17:20)
[2021-03-13] MEDS: divalproex DR 500 mg Tablet PO (09:58)
[2021-03-13] MEDS: allopurinol 100 mg Tablet PO (09:58)
--- NOTE | 2021-03-13 09:59 | PM.CONSULT ---
Providers/Reason For Consult Consulting Physician/Specialty*: Genny Guido MD/cardiology Reason for Consult*: Chest pain and abnormal stress test Attending Physician: Елена Menjivar MD Primary Care Provider: Juana Landeros History of Present Illness History of Present Illness Michael Mckinney is a 41 year old male with a history of hypertension, sleep apnea, gouty arthritis and gastroesophageal for disease, is presenting with complaints of chest pain. He had a recent stress test which was found to be abnormal. Cardiology consult is requested for further cardiac evaluation recommendations. Patient has been having episodes of chest pain for the last 2 months. So far he might have had 4 or 5 episodes. Each of these episodes last anywhere from 5 to 10 minutes and then gradually subsides. The pain is in the mid substernal area, radiating to the left shoulder and left side of the neck. He may have some associated tingling and a pressure-like feeling in these areas. Also may have some shortness of breath. No nausea or vomiting. No sweating dizziness or syncopal episodes. No other associated symptoms or radiation of pain. He had a recent stress test at the [facility] in [place]. He was told that the test was abnormal. He was told that the stress test shows some signs of major blockages and that he needs a cardiac catheterization to further evaluate the arteries. While waiting for this procedure, patient had some issues at home and had to move out. So he came to the [place] area. He was seen by Dr. Boland at the [facility]. Dr. Boland is planning to do the cardiac catheterization after receiving the medical records from the previous hospital. He also was told to come back to the hospital, if he has any recurrence of chest pain. Yesterday around midnight, he started having the pain while being at home. The pain was in the mid substernal area radiating to the neck. He had associated tingling and numbness of the left side of the neck and also at the upper back. For this reason, he decided to come to the hospital. Denies any other associated symptoms or radiation of pain. Currently ,at the time of my examination, patient is pain-free. Patient has a history of hypertension. He was prescribed medication by Dr. Boland. But according to the patient, the insurance denied this medication and for that reason he has not been taking it. He was found to have uncontrolled blood pressure during his office visit. He has no history for any hypertensive emergencies. He also is known to have sleep apnea and is on CPAP. He has a history of gouty arthritis and GERD. Also carries a history of esophagitis?. Denies any CVA or peripheral artery disease. No kidney disease, liver disease or bleeding disorders. No history for any dyslipidemia or diabetes. He has a strong family history for premature atherosclerotic heart disease. The maternal and paternal grandparents had atherosclerotic heart disease. His paternal grandparents started having heart problems in their 40s and 50s. His grandmother had a 5 open heart surgeries?. He is with 5 children. He is currently disabled from back injury. Review of Systems Narrative: CONSTITUTIONAL: No fever or chills. EYES: No blurring of vision or other visual disturbances lately. ENT: No hoarseness of voice, auditory disturbances or sore throat. CARDIOVASCULAR: As mentioned above. RESPIRATORY: History of sleep apnea as mentioned above GASTROINTESTINAL: History of GERD GENITOURINARY: No dysuria or hematuria. INTEGUMENTARY: No skin rashes or history of skin cancer. NEURO: No transient ischemic attacks or amaurosis. PSYCHIATRIC: History of agoraphobia and claustrophobia. Anxiety/depressive illness HEMATOLOGIC: No bleeding disorders or significant anemia. ENDOCRINE: No history of polyuria or polydipsia. MUSCULOSKELETAL: History of gouty arthritis ALLERGY/IMMUNOLOGY: As mentioned above. Meds/Allergies Home Medications and Allergies Home Medications Medication Instructions Recorded Confirmed Last Taken Type allopurinol 100 mg PO DAILY 11/02/20 03/13/21 Unknown History metoprolol tartrate 25 mg tablet 25 mg PO BID #180 tab 01/08/21 03/13/21 Unknown Rx aspirin [Aspir-81] 81 mg PO DAILY 03/13/21 03/13/21 Unknown History budesonide-formoterol [Symbicort] 1 puff INHALATION BID 03/13/21 03/13/21 Unknown History mirtazapine 15 mg PO BEDTIME 03/13/21 03/13/21 Unknown History omeprazole 40 mg PO BID 03/13/21 03/13/21 Unknown History venlafaxine 75 mg PO DAILY 03/13/21 03/13/21 Unknown History Allergies Allergy/AdvReac Type Severity Reaction Status Date / Time indomethacin Allergy Severe kidnesy Verified 03/13/21 09:15 shut down Current Medications Current Medications Generic Name Dose Route Start Last Admin Trade Name Edgarq PRN Reason Stop Dose Admin Enoxaparin Sodium 40 mg 03/13/21 05:00 03/13/21 05:35 Enoxaparin 40 Mg/0.4 Ml Syringe SUBCUT 40 mg Q24H SCAR Administration Methocarbamol 750 mg 03/13/21 06:00 03/13/21 05:59 Methocarbamol 750 Mg Tablet PO 750 mg Q6H SCAR Administration PFSH Acute PFSH: Medical History (Updated 03/13/21 @ 10:25 by Aileen Guido MD) Cannabis dependence, uncomplicated Chronic bilateral low back pain with bilateral sciatica Depression with anxiety Generalized anxiety disorder GERD (gastroesophageal reflux disease) Gout Gout flare Gout, arthritis High risk medication use Hyperuricemia Morbid obesity Panic disorder [episodic paroxysmal anxiety] Post-traumatic stress disorder, chronic PTSD (post-traumatic stress disorder) Reflux esophagitis Sleep apnea Surgical History (Updated 03/13/21 @ 05:12 by Елена Menjivar MD) H/O toe surgery History of cholecystectomy History of circumcision History of esophagogastroduodenoscopy (EGD) (~01/2019) History of sinus surgery Hx of appendectomy Hx of tonsillectomy Family History Other Cancer Diabetes Hyperlipidemia Hypertension Denies family history of Anesthesia complication Bleeding disorder Social History Smoking and tobacco status: former smoker Quit status (tobacco): quit date established Alcohol intake: never History of recent travel: No Vitals/I&O/Wt Last Vital Signs Temp 98.1 F 03/13/21 01:48 Pulse 73 03/13/21 08:57 Resp 12 03/13/21 05:41 BP 105/86 03/13/21 05:41 Pulse Ox 99 03/13/21 08:57 Weight last 48 hrs Weight 314 lb Physical Exam Narrative: EXAM NARRATIVE: GENERAL: The patient is alert and oriented times three. Not in any acute distress. Morbidly obese HEENT: No significant pallor, icterus or lymphadenopathy. The pupils are reactant to light. Oral cavity: There are no mucous membrane lesions. Funduscopic examination: The fundus is not visualized NECK: Trachea appears to be central. No masses noted. No JVD or thyromegaly appreciated. No carotid bruit. RESPIRATORY: Chest is symmetrical. No intercostals muscle retraction or any accessory muscle activation. There is no chest wall tenderness. Breath sounds are heard bilaterally. No rales or rhonchi heard. No evidence of any consolidation. BREASTS: Deferred. HEART: The PMI is not palpated. No palpable precordial events. S1 and S2 are normal. No S3 or S4 heard. No pericardial rub or any click heard. ABDOMEN: No vessel pulsations or distention. No tenderness. No organomegaly appreciated. No abdominal bruit. Bowel sounds are normally heard. : Deferred. RECTAL: Deferred. LYMPHATIC: No lymphadenopathy noted in the neck or groin. EXTREMITIES: No edema or cyanosis. No clubbing. The pulses are symmetrical bilaterally. The radial, femoral, dorsalis pedis and the posterior tibial pulses are palpated and found to be in good volume and amplitude. MUSCULOSKELETAL: Gait is normal. There is no joint deformity or swelling noted. No acute joint deformities or swelling SKIN: There are no significant scars or skin rash noted. NEUROPSYCHIATRIC: The patient is alert and oriented x3. Appears to be in a good mood. The higher functions are grossly within normal limits. No tremors or rigidity noted. Data Labs: Other Labs: Laboratory Last Values WBC 11.7 10^3/uL (4.0 -10.0) H 03/13/21 02:03 RBC 5.50 10^6/uL (4.1 -5.3) H 03/13/21 02:03 Hgb 16.0 g/dL (11.7-1 6.6) 03/13/21 02:03 Hct 49.3 % (42.0-52.0 ) 03/13/21 02:03 MCV 89.6 fL (80-94) 03/13/21 02:03 MCH 29.1 pg (28.0-34. 0) 03/13/21 02:03 MCHC 32.5 g/dL (30.0-3 6.0) 03/13/21 02:03 RDW 13.5 % (12.1-15.1 ) 03/13/21 02:03 Plt Count 277 10^3/cmm (130 -400) 03/13/21 02:03 MPV 11.5 fL (7.4-10.4 ) H 03/13/21 02:03 Neut % (Auto) 54.0 % 03/13/21 02:03 Lymph % (Auto) 32.8 % 03/13/21 02:03 Conway % (Auto) 11.1 % 03/13/21 02:03 Eos % (Auto) 1.0 % 03/13/21 02:03 Baso % (Auto) 0.8 % 03/13/21 02:03 Neut # (Auto) 6.30 10^3/uL (1.8 -7.7) 03/13/21 02:03 Lymph # (Auto) 3.8 10^3/uL (0.8- 4.8) 03/13/21 02:03 Conway # (Auto) 1.3 10^3/uL (0.2- 0.9) H 03/13/21 02:03 Eos # (Auto) 0.1 10^3/uL (0.0- 0.8) 03/13/21 02:03 Baso # (Auto) 0.1 10^3/uL (0.0- 0.1) 03/13/21 02:03 Nucleated RBC % (a uto) 0 % 03/13/21 02:03 Nucleated RBCs # 0.0 /100WBC 03/13/21 02:03 D-Dimer 0.33 ug/mIFEU (0- 0.59) 03/13/21 02:03 Sodium 140 mmol/L (136-1 45) 03/13/21 02:03 Potassium 3.8 mmol/L (3.5-5 .1) 03/13/21 02:03 Chloride 101 mmol/L (98-10 7) 03/13/21 02:03 Carbon Dioxide 29 mmol/L (22-29) 03/13/21 02:03 Anion Gap 13.8 (5-19) 03/13/21 02:03 BUN 10 mg/dL (6-20) 03/13/21 02:03 Creatinine 0.9 mg/dL (0.7-1. 2) 03/13/21 02:03 GFR Calculation 93.0 mL/min (90-1 30) 03/13/21 02:03 Glucose 108 mg/dL (65-115 ) 03/13/21 02:03 Estimat Average Gl ucose 114 03/13/21 02:03 Hemoglobin A1c 5.6 % (4.0-6.0) 03/13/21 02:03 Calculated Osmolal ity 290 mOsm/kg (285- 295) 03/13/21 02:03 Calcium 8.6 mg/dL (8.5-10 .5) 03/13/21 02:03 Total Bilirubin 0.2 mg/dL (0.15-1 .2) 03/13/21 02:03 AST 33 U/L (0-40) 03/13/21 02:03 ALT 48 U/L (0-41) H 03/13/21 02:03 Alkaline Phosphata se 79 IU/L (40-130) 03/13/21 02:03 Troponin T Baselin e 6 ng/L (0-15) 03/13/21 02:03 Troponin T 120 Min tanacross 6.00 ng/L (0-15) 03/13/21 04:00 Delta Troponin T 0 ABS# (0-10) 03/13/21 04:00 Troponin T Hi Sens 6Hr 6.00 ng/L (0-15) 03/13/21 08:03 Troponin T Hi Sens 6Hr Delta 0 ng/L (0-12) 03/13/21 08:03 Total Protein 6.5 g/dL (6.6-8.7 ) L 03/13/21 02:03 Albumin 4.3 g/dL (3.5-5.2 ) 03/13/21 02:03 Globulin 2.2 g/dL (1.3-4.6 ) 03/13/21 02:03 Triglycerides 290 mg/dL (0-150) H 03/13/21 04:00 Cholesterol 188 mg/dL (0-200) 03/13/21 04:00 LDL Cholesterol, C alc 99 mg/dL (50-129) 03/13/21 04:00 HDL Cholesterol 31 mg/dL (60-100) L 03/13/21 04:00 LDL/HDL Ratio 3.19 RATIO (0.00- 3.22) 03/13/21 04:00 Cholesterol/HDL Ra giovana 6.06 mg/dL (1.0-5 .00) H 03/13/21 04:00 Imaging^: CXR: My impression: Borderline cardiac silhouette. No lung infiltrate. No acute pathology noted. EKG^: EKG 1: My Interpretation: Normal sinus rhythm with normal ST Ts. Low voltage complexes in the precordial leads. Nonspecific IVCD A&P Assessment and plan (1) Chest pain: Normal stress test, in order to further evaluateThe patient symptoms are suggestive of unstable angina. However the EKG is unremarkable. No evidence of myocardial injury. His coronary status, patient may require a cardiac catheterization. For the time being, he may be treated with beta-blockers, aspirin, subcu Lovenox and antihypertensive medications. His lipid profile is not known. We may go ahead and do a lipid profile on the blood in the lab. Based on the clinical progress, further recommendations will be made. Try to get the medical records from [facility]. If the patient has not had any echocardiogram, we may go ahead and do one. Status: Acute Qualifiers: Chest pain type: chest pain due to myocardial ischemia Ischemic chest pain type: unstable angina pectoris Qualified Code(s): I20.0 - Unstable angina (2) Accelerated hypertension: Patient is on metoprolol 25 mg p.o. twice daily. We started on Nitropaste 2 inch every 6 hours to anterior chest wall. Also may start him on amlodipine 5 mg p.o. now and daily. Based on the clinical progress, further recommendations will be made. Status: Acute (3) Obstructive sleep apnea: Patient is on CPAP. May continue the same. Status: Acute (4) GERD (gastroesophageal reflux disease): May continue on the current management. Status: Acute Qualifiers: Esophagitis bleeding: without hemorrhage Esophagitis presence: with esophagitis Qualified Code(s): K21.00 - Gastro-esophageal reflux disease with esophagitis, without bleeding (5) Morbid obesity: Patient seems to understand the importance of lifestyle modification. Status: Acute Additional A&P Information Based on the patient's clinical response and review of the medical records, further recommendations will be made. We will keep him n.p.o. for the time being. May consider doing cardiac catheterization later this afternoon. I will be discussing his case with Dr. Boland. Thank you for the opportunity to evaluate this patient make these recommendations I received the medical records from [facility]. Apparently the patient had the myocardial perfusion imaging on 07/01/2020. At that time, he was found to have features of apical ischemia. He did not have any echocardiogram. Coding Level of Care Code Acute Specialties Operator for Chg Fwd Diagnoses Chest pain I20.0 Chest pain type: chest pain due to myocardial ischemia Ischemic chest pain type: unstable angina pectoris Accelerated hypertension I10 Obstructive sleep apnea G47.33 GERD (gastroesophageal reflux disease) K21.00 Esophagitis bleeding: without hemorrhage Esophagitis presence: with esophagitis Morbid obesity E66.01
[2021-03-13] MEDS: pantoprazole DR 40 mg Tablet PO (10:00)
--- NOTE | 2021-03-13 10:00 | PC.NURSE ---
ekg done and placed in pt's chart
--- NOTE | 2021-03-13 10:36 | USCV_ITS ---
Michael Mckinney Age: 41 Gender: M : 1980 Exam Date: 03/13/2021 10:53 Ordering Phys: Aileen Guido MD ([email or web address]) Technologist: Kelsey Marks Exam Location: [facility] [place] Indication: unstable angina BP: 122 / 96 HR: 71 Rhythm: Sinus Technical Quality: Adequate MEASUREMENTS (Male / Female) Normal Values 2D ECHO LV Diastolic Diameter PLAX 3.3 cm 4.2 - 5.9 / 3.9 - 5.3 cm LV Systolic Diameter PLAX 3.8 cm LV Chamber Size 3.2 cm IVS Diastolic Thickness 1.6 cm 0.6 - 1.0 / 0.6 - 0.9 cm IVS Systolic Thickness 1.9 cm LVPW Diastolic Thickness 1.5 cm 0.6 - 1.0 / 0.6 - 0.9 cm LVPW Systolic Thickness 2.1 cm RV Chamber Size 2.5 cm LVOT Diameter 2.0 cm LV Ejection Fraction 2D Teich 40.2 % LV Ejection Fraction MOD 2C 47.4 % LV Ejection Fraction 2C AL 48.1 % LA Diameter 3.1 cm LA Width 2.9 cm LA Height 3.9 cm RA Width 2.9 cm RA Height 4.0 cm Aorta at Sinotubular Diameter 4.1 cm M-MODE LV Diastolic Diameter MM 5.2 cm 4.2 - 5.9 / 3.9 - 5.3 cm LV Systolic Diameter MM 3.7 cm LV Ejection Fraction MM Teich 55.4 % IVS Diastolic Thickness MM 1.3 cm 0.6 - 1.0 / 0.6 - 0.9 cm IVS Systolic Thickness MM 1.9 cm LVPW Diastolic Thickness MM 1.3 cm 0.6 - 1.0 / 0.6 - 0.9 cm LVPW Systolic Thickness MM 2.6 cm Aortic Annulus Diameter 4.3 cm LA Ao Ratio MM 0.9 MV E Point Septal Separation 0.9 cm DOPPLER AV Peak Velocity 90.0 cm/s LVOT Peak Velocity 86.0 cm/s AV Area Cont Eq vti 3.3 cm squared AV Area Cont Eq pk 3.2 cm squared MV Area PHT 4.5 cm squared Mitral E to A Ratio 0.9 MV E' Velocity 41.0 cm/s Mitral E to MV E' Ratio 9.6 Mitral E to LV E' Lateral Ratio 8.9 Mitral E to LV E' Septal Ratio 10.4 TR Peak Velocity 121.4 cm/s TR Peak Gradient 5.9 mmHg TR Mean Velocity 87.5 cm/s TR Mean Gradient 3.9 mmHg TR Velocity Time Integral 30.6 cm TV Peak E Velocity 64.0 cm/s Right Atrial Pressure 3.0 mmHg Pulmonary Artery Systolic Pressu 8.9 mmHg PV Peak Velocity 86.0 cm/s RV Acceleration Time 0.1 s RV Ejection Time 0.3 s RV AcT/ET 0.5 FINDINGS Left Ventricle Normal left ventricular size and systolic function, EF 63 %. No regional wall motion abnormalities. Right Ventricle The right ventricle is normal in size and function. Right Atrium The right atrium is normal in size. Left Atrium The left atrium is normal in size. Mitral Valve No gross abnormalities noted Aortic Valve No gross abnormalities noted Tricuspid Valve No gross abnormalities noted Pulmonic Valve Pulmonic valve not well visualized. Pericardium Normal pericardium without effusion. Aorta Normal aortic annulus size. CONCLUSIONS Normal left ventricular size and systolic function, EF 63 %. No regional wall motion abnormalities. Possibly normal cardiac chamber sizes. No significant stenotic or regurgitant valvular lesions There is no pericardial effusion. Technically difficult study because of the poor ultrasonic window. Dr Aileen Guido MD [facility] (Electronically Signed) Final Date: 13 March 2021 13:47 S
[2021-03-13 11:17] LABS: Thyroid Stimulating Hormone 1.51 uIU/mL (0.27-4.20)
[2021-03-13] MEDS: enoxaparin 100 mg/mL Syringe 60 MG SUBCUT (11:49)
--- NOTE | 2021-03-13 11:49 | XACV_ITS ---
Exam Room: [facility] Ht: 183 cm Wt: 142 kg BSA: 2.75 m2 Gender: Male : 1980 Any Known Allergies: Other Exam Priority: Routine Indication(s): - Abnormal stress perfusion study - Unstable angina Procedure(s): Procedure Description: Diagnostic procedure Procedure Description: Coronary Angiography Diagnostic Cath Status: Urgent Diagnostic Findings * Circumflex has no disease. Large sized ramus artery does not have any significant stenosis. * Left Main has no disease. * Right Coronary Artery has no disease. * Mid Left Anterior Descending: minimal 30% stenosis, ALISON: 3 flow. * Coronary angiography shows right dominance. Conclusions 1. Non obstructive coronary artery disease. Recommendations * Aggressive risk factor modification. * Transfer to [facility]. * Outpatient cardiology follow up in 1 month. Interventional RX Recommendation: medical therapy and/or counseling Diagnostic RX Recommendation: medical therapy and/or counseling Anticoagulation: Heparin Pressures Phase:Rest AO : 115 / 94 ( 104 ) @ 1:13:00 PM 133 / 66 ( 80 ) @ 1:14:00 PM 119 / 96 ( 107 ) @ 1:14:00 PM Clinical Evaluation EBL: 5mL-10mL Procedural Details Procedure Consent Obtained. Current Diagnosis : Unstable angina. Pre-Procedure Time Out. Identified patient by full name and date of as verbalized by the patient/guarantor. Does the consent match the physician's order: Yes. Accurate & Complete Informed Consent: Yes. Inpatient/Outpatient History & Physical on Chart: Yes. If H&P is completed, is and addenduem needed: No; If yes, is the addendum complete: N/A. Visualize and Verify Site with Patient/Guarantor: N/A. Relevant Radiology Images available: N/A. Pre-op teaching completed and patient verbalized understanding. The risks, benefits, and alternatives of sedation and/or procedure were discussed by physician. The patient agrees to continue. Procedure started. 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 Chest Pain Symptom Assessment: Typical Angina Symptoms. Cardiovascular Instability: No. Correct patient, site and procedure confirmed by cath team. Current diagnosis: Unstable angina. PERRLA. 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 Lungs clear x 5 lobes. IV Site on Arrival: 18 gauge in the right anticubital. IV Fluids: 0.45% NaCl at KVO. 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 Pre Procedural Pulses: bilateral radial was 3+. Pre Procedural Pulses: bilateral posterior tibial was 3+. Pre Procedural Pulses: bilateral dorsalis pedis was 3+. Oxygen started at 3liters/min via nasal canula. right radial was prepped with chloroprep then draped in the usual sterile fashion. right groin was prepped with chloroprep then draped in the usual sterile fashion. Physician notified. Baseline sample Acquired. HR: 80 BPM. Baseline sample Acquired. HR: 77 BPM. Patient's family updated by MD prior to the procedure. Physician arrived. Physician scrubbed in. Immediate Pre-Procedure Time Out. Correct Patient: Yes; Correct Procedure: Yes; Correct Site: Yes; Correct Patient Position: Yes; Correct Supplies: Yes; Dried Flammable Prep: Yes; Blood Products Available: N/A;. Equipment: 5F - Radial. Cardiac Cath Pack. ACIST Manifold Kit Model BT 2000. Heparinized Saline (2 units/mL), 1000 mL bag. Equipment: 6F - Radial. Lidocaine 1% infiltrated to the right radial. Arterial access obtained. A 5 south k[place] TIG catheter in over wire. Multiple views taken of right coronary artery. Catheter redirected to the LCA. Multiple views taken of left coronary artery. Catheter removed over the exchange wire. A 5 [place] korean Angled Pig catheter in over wire. Unable to cross Aortic valve. Catheter removed over the wire. Physician scrubbed out. Physician review of films. Patient's family updated. A TR Band was successful obtaining hemostatsis at the Right Radial artery insertion site. TR band placed. Hemostasis obtained. Post Procedure: Pulses reassessed and unchanged. PERRLA. 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 No VTE prophylaxis required. Medication's Wasted: Lidocaine 1% = 18 ml. Medication's Wasted: Nitro = 49.8 mg. Medication's Wasted: Heparin = 1000 units. Medication's Wasted: Versed = 1 mg. Medication's Wasted: Fentanyl = 50 mcg. Total IV fluids: 34.6 mL. Fluoro: 3:07. Contrast type used: Omnipaque 300 mg/mL, 150 mL bottle. Omnipaque 68 ml. Post-op diagnosis: Non Obstuctive CAD. Complications: None. Estimated blood loss: 5mL-10mL. Procedure completed. Patient transferred by wheelchair to CPRU. Vital chart was stopped. Access Site Site: Right Radial artery Sheath Size: 6 Fr Hemostasis Method: TR Band Hemostasis Success: Successful Procedure Medications Start: 1:56 PM Stop: 1:56 PM Medication: Versed Amount: 1 mg Route: I.V. Start: 1:56 PM Stop: 1:56 PM Medication: Fentanyl Amount: 50 mcg Route: I.V. Start: 2:00 PM Stop: 2:00 PM Medication: Versed Amount: 1 mg Route: I.V. Start: 2:00 PM Stop: 2:00 PM Medication: Fentanyl Amount: 50 mcg Route: I.V. Start: 2:02 PM Stop: 2:02 PM Medication: Versed Amount: 1 mg Route: I.V. Start: 2:02 PM Stop: 2:02 PM Medication: Fentanyl Amount: 50 mcg Route: I.V. Start: 2:08 PM Stop: 2:08 PM Medication: Versed Amount: 1 mg Route: I.V. Start: 2:08 PM Stop: 2:08 PM Medication: Fentanyl Amount: 50 mcg Route: I.V. Start: 2:10 PM Stop: 2:10 PM Medication: Nitrogylcerin Amount: 200 mcg Route: I.A. Start: 2:11 PM Stop: 2:11 PM Medication: Heparin Amount: 5000 units Route: I.V. Start: 2:16 PM Stop: 2:16 PM Medication: Versed Amount: 1 mg Route: I.V. Start: 2:16 PM Stop: 2:16 PM Medication: Fentanyl Amount: 50 mcg Route: I.V. I, the attending physician, have reviewed and verified all procedure medications. Yes, all medications given per verbal order History/Risk Factors Hypertension: Yes Dyslipidemia: No Peripheral Arterial Disease (PAD): No Myocardial Infarction (NE): No Obesity: Yes Renal Disease: No Tobacco Use: Former Prior Interventions PCI: No CABG: No Valve Surgery: No Report Signatures Finalized by Hernan Boland MD on 03/27/2021 04:13 PM
[2021-03-13] MEDS: amlodipine 5 mg Tablet PO (11:50)
[2021-03-13] MEDS: nitroglycerin 1 gm/inch oint Pkt 2 INCH TOPICAL (11:56)
[2021-03-13] MEDS: sodium chloride 0.45% 1,000 ML 75 ML IV (11:57)
--- NOTE | 2021-03-13 13:30 | PC.NURSE ---
to cathead operator mt wheelchair with cathead operator staff.
--- NOTE | 2021-03-13 13:46 | W.PM.OPSUD ---
Surgery/Procedure H&P Update DATE OF PROCEDURE: March 13, 2021 DATE H&P PERFORMED: 03/13/21 H&P UPDATE INFORMATION: I have reviewed H&P completed within last 30 days, I have examined patient prior to procedure and No changes to prior documentation PREOP DIAGNOSIS: Unstable angina PRIMARY INDICATION FOR PROCEDURE: Unstable angina PLANNED PROCEDURE: Left heart cath with possible percutaneous coronary intervention PATIENT REASSESSED PRIOR TO SEDATION, WITH NO CHANGE NOTED: Yes PHYSICAL EXAM: alert, oriented x 3, clear to auscultation bilaterally and regular rate & rhythm AIRWAY EVAL/ANESTHESIA PLAN: ASA III, Monitored Anesthesia, Local Anesthesia, Risks, benefits & alternatives of sedation and/or procedure discussed and Patient agrees to continue as planned
--- NOTE | 2021-03-13 19:05 | PC.NURSE ---
Shift Note Frequent safety and comfort rounds continue. Orders and/or nursing care completed as indicated. Patient monitored for response to intervention and treatment(s). Education provided includes TR band removal and incision care, medication compliance. Patient and/or route sales representative verbalize understand. Will continue to monitor.
--- NOTE | 2021-03-13 19:25 | PC.NURSE ---
Shift Note Frequent safety and comfort rounds continue. Orders and/or nursing care completed as indicated. Patient monitored for response to intervention and treatment(s). Education provided includes Restoril. Patient and/or care support representative both verbalized complete understanding. Received bedside report from JUAN Guaman. Patient is s/p cath with right radial access. Band removed at this time by JUAN Guaman. No s/s of bleeding or hematoma formation observed. Site was cleaned and covered with 2x2 and bio-occlusive dressing. Additional education was provided regarding site care and restrictions. Discussed plan for the night. Patient verbalized complete understanding. Patient denies pain or needs at this time. No distress observed. Will continue to monitor.
[2021-03-13] MEDS: cloNIDine 0.1 mg Tablet PO (20:18)
[2021-03-13] MEDS: temazepam 15 mg Capsule PO (20:18)
[2021-03-13] MEDS: divalproex DR 500 mg Tablet 1000 MG PO (20:38)
--- NOTE | 2021-03-13 20:46 | PC.NURSE ---
Addendum entered by Alexandra Amaya RN 03/13/21 20:48: Doctors Krystian and Otto are aware of this situation. Original Note: Patient reports having difficulty urinating in to a urinal. Observed wetness to brief however. Patient does appear to have decreased output.
[2021-03-14 04:39] VITALS: PULSE 72; RESP 28
[2021-03-14] MEDS: methocarbamol 750 mg Tablet PO (04:39)
[2021-03-14 04:45] VITALS: BP 153/88; PULSE 95; RESP 19
[2021-03-14 05:04] VITALS: PULSE 80
[2021-03-14 05:35] LABS: Basophils # 0.1 10^3/uL (0.0-0.1); Basophils % 0.8 %; Eosinophils # 0.1 10^3/uL (0.0-0.8); Eosinophils % 0.7 %; Hematocrit 49.7 % (42.0-52.0); Hemoglobin 15.7 g/dL (11.7-16.6); Lymphocytes # 3.8 10^3/uL (0.8-4.8); Lymphocytes % 29.8 %; Mean Corpuscular HGB Conc 31.6 g/dL (30.0-36.0); Mean Corpuscular Hemoglobin 28.7 pg (28.0-34.0); Mean Corpuscular Volume 90.9 fl (80-94); Mean Platelet Volume 11.1 fL (7.4-10.4); Monocytes # 1.3 10^3/uL (0.2-0.9); Monocytes % 10.3 %; Neutrophils # 7.49 10^3/uL (1.8-7.7); Neutrophils % 58.1 %; Nucleated Red Blood Cells % 0 %; Platelet Count 264 10^3/cmm (130-400); Red Blood Count 5.47 10^6/uL (4.1-5.3); Red Cell Distribution Width 13.7 % (12.1-15.1); White Blood Count 12.9 10^3/uL (4.0-10.0)
--- NOTE | 2021-03-14 05:37 | PC.NURSE ---
Shift Note Frequent safety and comfort rounds continue. Orders and/or nursing care completed as indicated. Patient monitored for response to intervention and treatment(s). Education provided includes Lovenox. Patient and/or patient access representative verbalized understanding. Patient refused Lovenox dose this am due to pending discharge . Patient had an uneventful night. Rested well. Dressing to right wrist remains c,d,i with no s/s of bleeding or hematoma formation observed. Patient ambulates well. Denies pain or other needs. No distress observed. Will continue to monitor.
[2021-03-14 05:48] LABS: Alanine Aminotransferase 39 U/L (0-41); Alkaline Phosphatase 73 IU/L (40-130); Anion Gap 14.3 (5-19); Aspartate Amino Transferase 22 U/L (0-40); Blood Urea Nitrogen 10 mg/dL (6-20); Calcium 8.4 mg/dL (8.5-10.5); Carbon Dioxide 26 mmol/L (22-29); Chloride 103 mmol/L (98-107); Globulin 2.5 g/dL (1.3-4.6); Glomerular Filtration Rate 106.5 mL/min (90-130); Glucose 99 mg/dL (65-115); Osmolality Calculated 287 mOsm/kg (285-295); Potassium 4.3 mmol/L (3.5-5.1); Sodium 139 mmol/L (136-145); Total Bilirubin 0.4 mg/dL (0.15-1.2); Total Protein 6.5 g/dL (6.6-8.7)
[2021-03-14 07:20] VITALS: BP 117/85; PULSE 75; RESP 15; TEMP 36.6; O2SAT 98
[2021-03-14] MEDS: aspirin 81 mg EC Tablet PO (08:18)
[2021-03-14] MEDS: divalproex DR 500 mg Tablet PO (08:18)
[2021-03-14] MEDS: allopurinol 100 mg Tablet PO (08:18)
[2021-03-14] MEDS: amlodipine 5 mg Tablet PO (08:18)
[2021-03-14] MEDS: metoprolol tartrate 25 mg Tablet PO (08:18)
[2021-03-14] MEDS: pantoprazole DR 40 mg Tablet PO (08:18)
--- NOTE | 2021-03-14 08:54 | P.PN_ITS ---
Subjective Subjective: Interval history: Patient went to cardiac catheterization yesterday. He was found to have no significant obstructive coronary artery disease. The chest pain was thought to be noncardiac in origin. His blood pressure is slowly getting under control. Medications: Reviewed: Yes Medication Review Details: Current Medications Acetaminophen (Acetaminophen 325 Mg Tablet) 650 mg PO Q6H PRN PRN Reason: MILD PAIN Al Hydrox/Mg Hydrox/Simethicone (Wqcg-Oqk-Ldxrrqhsm-Braulio 30 Ml Udc) 30 ml PO Q15M PRN PRN Reason: INDIGESTION Allopurinol (Allopurinol 100 Mg Tablet) 100 mg PO DAILY PENDING SALE TO [facility] Last Admin: 03/14/21 08:18 Dose: 100 mg Documented by: Amlodipine Besylate (Amlodipine 5 Mg Tablet) 5 mg PO DAILY PENDING SALE TO [facility] Last Admin: 03/14/21 08:18 Dose: 5 mg Documented by: Aspirin (Aspirin 81 Mg Ec Tablet) 81 mg PO DAILY PENDING SALE TO [facility] Last Admin: 03/14/21 08:18 Dose: 81 mg Documented by: Atropine Sulfate (Atropine 1 Mg/Ml Sdv 1 Ml) 0.5 mg IVP PRN PRN PRN Reason: Symptomatic bradycardia Clonidine HCl (Clonidine 0.1 Mg Tablet) 0.1 mg PO BEDTIME PENDING SALE TO [facility] Last Admin: 03/13/21 20:18 Dose: 0.1 mg Documented by: Divalproex Sodium (Divalproex Dr 500 Mg Tablet) 500 mg PO DAILY PENDING SALE TO [facility] Last Admin: 03/14/21 08:18 Dose: 500 mg Documented by: Divalproex Sodium (Divalproex Dr 500 Mg Tablet) 1,000 mg PO QPM PENDING SALE TO [facility] Last Admin: 03/13/21 20:38 Dose: 1,000 mg Documented by: Enoxaparin Sodium (Enoxaparin 40 Mg/0.4 Ml Syringe) 40 mg SUBCUT Q24H PENDING SALE TO [facility] Last Admin: 03/14/21 04:46 Dose: Not Given Documented by: Fentanyl (Fentanyl 50 Mcg/Ml Inj 2ml) 50 mcg IVP PRN PRN PRN Reason: Prior to sheath removal Sodium Chloride (Sodium Chloride 0.45%) 1,000 mls @ 75 mls/hr IV .[id number] PENDING SALE TO [facility] Last Infusion: 03/13/21 23:03 Dose: Infused Documented by: Lidocaine (Lidocaine 5% Patch) 1 patch TOPICAL [id number] PRN PRN Reason: back pain Magnesium Hydroxide (Magnesium Hydroxide 30 Ml Udc) 30 ml PO DAILY PRN PRN Reason: CONSTIPATION Methocarbamol (Methocarbamol 750 Mg Tablet) 750 mg PO Q6H PENDING SALE TO [facility] Last Admin: 03/14/21 04:39 Dose: 750 mg Documented by: Metoprolol Tartrate (Metoprolol Tartrate 25 Mg Tablet) 25 mg PO BID PENDING SALE TO [facility] Last Admin: 03/14/21 08:18 Dose: 25 mg Documented by: Morphine Sulfate (Morphine 4 Mg/Ml Sdv 1 Ml) 2 mg IVP Q4H PRN PRN Reason: SEVERE PAIN Naloxone HCl (Naloxone 0.4 Mg/Ml Sdv) 0.1 mg IVP Q2M PRN PRN Reason: RESPIRATORY RATE < 8/MIN Nitroglycerin (Nitroglycerin 0.4 Mg Sublingual Tablet) 0.4 mg SUBLINGUAL Q5M PRN PRN Reason: CHEST PAIN Ondansetron HCl (Ondansetron 2 Mg/Ml Sdv 2 Ml) 4 mg IVP Q8H PRN PRN Reason: vomiting, or N/V if npo Pantoprazole Sodium (Pantoprazole Dr 40 Mg Tablet) 40 mg PO DAILY PENDING SALE TO [facility] Last Admin: 03/14/21 08:18 Dose: 40 mg Documented by: Temazepam (Temazepam 15 Mg Capsule) 15 mg PO BEDTIME PRN PRN Reason: INSOMNIA Last Admin: 03/13/21 20:18 Dose: 15 mg Documented by: Vitals/I&O/Wt Last Vital Signs Temp 97.9 F 03/14/21 07:20 Pulse 75 03/14/21 07:20 Resp 15 03/14/21 07:20 BP 117/85 03/14/21 07:20 Pulse Ox 98 03/14/21 07:20 03/13/21 03/14/21 03/14/21 22:59 06:59 14:59 Intake Total 1120 / 1120 340 / 340 Balance 1120 / 1120 340 / 340 Weight last 48 hrs Weight 323 lb Weight 314 lb Physical Exam Narrative: EXAM NARRATIVE: GENERAL: The patient is alert and oriented times three. Not in any acute distress. Morbidly obese HEENT: No significant pallor, icterus or lymphadenopathy. The pupils are reactant to light. Oral cavity: There are no mucous membrane lesions. Funduscopic examination: The fundus is not visualized NECK: Trachea appears to be central. No masses noted. No JVD or thyromegaly appreciated. No carotid bruit. RESPIRATORY: Chest is symmetrical. No intercostals muscle retraction or any accessory muscle activation. There is no chest wall tenderness. Breath sounds are heard bilaterally. No rales or rhonchi heard. No evidence of any consolidation. BREASTS: Deferred. HEART: The heart sounds are normal. No S3 or S4. No significant murmurs. No pericardial rub. ABDOMEN: Obese, nontender no organomegaly and bowel sounds are normally heard. : Deferred. RECTAL: Deferred. LYMPHATIC: No lymphadenopathy noted in the neck or groin. EXTREMITIES: No edema or cyanosis. Peripheral pulses are palpable in fairly go od volume and amplitude. Right radial arterial point is 8 has no hematoma bleeding. MUSCULOSKELETAL: No acute joint deformities or swelling SKIN: There are no significant scars or skin rash noted. NEUROPSYCHIATRIC: The patient is alert and oriented x3. Appears to be in a good mood. The higher functions are grossly within normal limits. No tremors or rigidity noted. Data : 03/14/21 04:44 03/14/21 04:44 Other Labs: Laboratory Last Values WBC 12.9 10^3/uL (4.0-10.0) H 03/14/21 04:44 RBC 5.47 10^6/uL (4.1-5.3) H 03/14/21 04:44 Hgb 15.7 g/dL (11.7-16.6) 03/14/21 04:44 Hct 49.7 % (42.0-52.0) 03/14/21 04:44 MCV 90.9 fl (80-94) 03/14/21 04:44 MCH 28.7 pg (28.0-34.0) 03/14/21 04:44 MCHC 31.6 g/dL (30.0-36.0) 03/14/21 04:44 RDW 13.7 % (12.1-15.1) 03/14/21 04:44 Plt Count 264 10^3/cmm (130-400) 03/14/21 04:44 MPV 11.1 fL (7.4-10.4) H 03/14/21 04:44 Neut % (Auto) 58.1 % 03/14/21 04:44 Lymph % (Auto) 29.8 % 03/14/21 04:44 [place] % (Auto) 10.3 % 03/14/21 04:44 Eos % (Auto) 0.7 % 03/14/21 04:44 Baso % (Auto) 0.8 % 03/14/21 04:44 Neut # (Auto) 7.49 10^3/uL (1.8-7.7) 03/14/21 04:44 Lymph # (Auto) 3.8 10^3/uL (0.8-4.8) 03/14/21 04:44 [place] # (Auto) 1.3 10^3/uL (0.2-0.9) H 03/14/21 04:44 Eos # (Auto) 0.1 10^3/uL (0.0-0.8) 03/14/21 04:44 Baso # (Auto) 0.1 10^3/uL (0.0-0.1) 03/14/21 04:44 Nucleated RBC % (auto) 0 % 03/14/21 04:44 Nucleated RBCs # 0.0 /100WBC 03/14/21 04:44 D-Dimer 0.33 ug/mIFEU (0-0.59) 03/13/21 02:03 Sodium 139 mmol/L (136-145) 03/14/21 04:44 Potassium 4.3 mmol/L (3.5-5.1) 03/14/21 04:44 Chloride 103 mmol/L (98-107) 03/14/21 04:44 Carbon Dioxide 26 mmol/L (22-29) 03/14/21 04:44 Anion Gap 14.3 (5-19) 03/14/21 04:44 BUN 10 mg/dL (6-20) 03/14/21 04:44 Creatinine 0.8 mg/dL (0.7-1.2) 03/14/21 04:44 GFR Calculation 106.5 mL/min (90-130) 03/14/21 04:44 Glucose 99 mg/dL (65-115) 03/14/21 04:44 Estimat Average Glucose 114 03/13/21 02:03 Hemoglobin A1c 5.6 % (4.0-6.0) 03/13/21 02:03 Calculated Osmolality 287 mOsm/kg (285-295) 03/14/21 04:44 Calcium 8.4 mg/dL (8.5-10.5) L 03/14/21 04:44 Total Bilirubin 0.4 mg/dL (0.15-1.2) 03/14/21 04:44 AST 22 U/L (0-40) 03/14/21 04:44 ALT 39 U/L (0-41) 03/14/21 04:44 Alkaline Phosphatase 73 IU/L (40-130) 03/14/21 04:44 Troponin T Baseline 6 ng/L (0-15) 03/13/21 02:03 Troponin T 120 Minute 6.00 ng/L (0-15) 03/13/21 04:00 Delta Troponin T 0 ABS# (0-10) 03/13/21 04:00 Troponin T Hi Sens 6Hr 6.00 ng/L (0-15) 03/13/21 08:03 Troponin T Hi Sens 6Hr Delta 0 ng/L (0-12) 03/13/21 08:03 Total Protein 6.5 g/dL (6.6-8.7) L 03/14/21 04:44 Albumin 4.0 g/dL (3.5-5.2) 03/14/21 04:44 Globulin 2.5 g/dL (1.3-4.6) 03/14/21 04:44 Triglycerides 290 mg/dL (0-150) H 03/13/21 04:00 Cholesterol 188 mg/dL (0-200) 03/13/21 04:00 LDL Cholesterol, Calc 99 mg/dL (50-129) 03/13/21 04:00 HDL Cholesterol 31 mg/dL (60-100) L 03/13/21 04:00 LDL/HDL Ratio 3.19 RATIO (0.00-3.22) 03/13/21 04:00 Cholesterol/HDL Ratio 6.06 mg/dL (1.0-5.00) H 03/13/21 04:00 TSH 1.51 uIU/mL (0.27-4.20) 03/13/21 04:00 Echo: My impression: Done on 03/13/2021 normal left ventricular size and systolic function, EF 63 %. No regional wall motion abnormalities. Possibly normal cardiac chamber sizes. No significant stenotic or regurgitant valvular lesions There is no pericardial effusion. Technically difficult study because of the poor ultrasonic window. A&P Assessment and plan (1) Chest pain: Had the cardiac catheterization yesterday. He is known to have mild diffuse coronary artery disease. No significant arterial obstruction. The LVEDP is not known. His uncontrolled blood pressure with possible left ventricular diastolic dysfunction also are contributing factors Status: Resolved Qualifiers: Chest pain type: chest pain due to myocardial ischemia Ischemic chest pain type: unstable angina pectoris Qualified Code(s): I20.0 - Unstable angina (2) Accelerated hypertension: Blood pressure seems to be slowly getting under control. May continue on the current medications. Status: Acute (3) Obstructive sleep apnea: Patient is on CPAP. May continue the same. Status: Acute (4) GERD (gastroesophageal reflux disease): May continue on the current management. Status: Acute Qualifiers: Esophagitis bleeding: without hemorrhage Esophagitis presence: with esophagitis Qualified Code(s): K21.00 - Gastro-esophageal reflux disease with esophagitis, without bleeding (5) Morbid obesity: Patient seems to understand the importance of lifestyle modification. Status: Acute Additional A&P Information If the patient continues to remain stable, he may be discharged home on the current medications. [facility] to be [facility] weeks to see the nurse practitioner. He may take sublingual nitroglycerin on a as needed basis for the chest pain. Advised to avoid any weight lifting with the right hand for the next 2 days. He will see Dr. Boland in his office in 3 weeks Attestations Medical Necessity Statement*: Possible discharge home today Other Attestations: Possible discharge home today. Coding Level of Care Code Acute [employer] [facility] for Melecio Kim Diagnoses Chest pain I20.0 Chest pain type: chest pain due to myocardial ischemia Ischemic chest pain type: unstable angina pectoris Accelerated hypertension I10 Obstructive sleep apnea G47.33 GERD (gastroesophageal reflux disease) K21.00 Esophagitis bleeding: without hemorrhage Esophagitis presence: with esophagitis Morbid obesity E66.01
--- NOTE | 2021-03-14 11:00 | PC.NURSE ---
Ambulate Pt up ad hay and walking in the room. Denies any chest pain or discomfort. Pt tolerated activity well.
[2021-03-14 11:03] VITALS: BP 125/102
--- NOTE | 2021-03-14 11:44 | P.DS_ITS ---
Discharge Providers Date of Admission: 03/13/21 07:20 Date of Discharge: March 14, 2021 Attending Provider at Admission: Елена Menjivar MD Attending Provider at Discharge: Shobha Martin Primary Care Provider: Juana Landeros Diagnoses at Discharge Discharge Diagnosis (1) Chest pain: Status: Acute Qualifiers: Chest pain type: chest pain due to myocardial ischemia Ischemic chest pain type: unstable angina pectoris Qualified Code(s): I20.0 - Unstable angina (2) Accelerated hypertension: Status: Acute (3) Obstructive sleep apnea: Status: Acute (4) GERD (gastroesophageal reflux disease): Status: Acute Qualifiers: Esophagitis bleeding: without hemorrhage Esophagitis presence: with esophagitis Qualified Code(s): K21.00 - Gastro-esophageal reflux disease with esophagitis, without bleeding (5) Morbid obesity: Status: Acute Reason for Visit Reason for Visit: CP/SOB/Jaw Pain Hospital Course Hospital Course 41 year old male with obesity, HTN, positive stress from 3 months ago from [place], followed by Dr Boland as outpatient for chest discomfort, exertion shortness of breath and orthopnea. He was planned for outpatient cardiac cath on 03/25. He presented to the ED today with substernal chest pain starting 2 hrs [employer] along with nausea, vomiting and diaphoresis. Denies palpitations, syncope. EKG without acute ST-T wave changes, trop baseline 6, 2 hr delta not significant.Patient was seen by cardiology and taken for cardiac catheterization which did not show any evidence of obstructive coronary artery disease. Patient was noted to have hypertensive episodes. Antihypertensives were resumed. Patient did not have any further recurrence of chest discomfort. Patient was seen and cleared by cardiology on . Discharged home in stable condition. Physical Exam Narrative: EXAM NARRATIVE: General: No acute distress, AO x3 HEENT: PERRLA, pupils bilaterally equal and reactive, pallors not present Chest: Normal vesicular breath sounds, no added sounds, equal good air entry bilaterally CVS: S1-S2 regular, no murmurs, no tachycardia, no gallops, no rubs Abdomen: Soft, nontender, no organomegaly, bowel sounds present Neuro: No focal deficits, no facial deformity, AO x3, power 5/5 in all limbs Discharge Data Data Completed and Pending: Completed Studies During Hospitalization Category Date Time Status XR chest 1V lashon ble [id number] Stat Exams 03/13/21 02:54 Completed CV. 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 request for service Routin e Exams 03/13/21 11:49 Taken Coronavirus Test [facility] 03/13/21 Received Labs from last 24 hours 03/14/21 03/14/21 03/13/21 04:44 04:44 Unknown WBC 12.9 H RBC 5.47 H Hgb 15.7 Hct 49.7 MCV 90.9 MCH 28.7 MCHC 31.6 RDW 13.7 Plt Count 264 MPV 11.1 H Neut % (Auto) 58.1 Lymph % (Auto) 29.8 [place] % (Auto) 10.3 Eos % (Auto) 0.7 Baso % (Auto) 0.8 Neut # (Auto) 7.49 Lymph # (Auto) 3.8 [place] # (Auto) 1.3 H Eos # (Auto) 0.1 Baso # (Auto) 0.1 Nucleated RBC % (a uto) 0 Nucleated RBCs # 0.0 Sodium 139 Potassium 4.3 Chloride 103 Carbon Dioxide 26 Anion Gap 14.3 BUN 10 Creatinine 0.8 GFR Calculation 106.5 Glucose 99 Calculated Osmolal ity 287 Calcium 8.4 L Total Bilirubin 0.4 AST 22 ALT 39 Alkaline Phosphata se 73 Total Protein 6.5 L Albumin 4.0 Globulin 2.5 Nasal/Oral COVID-1 9 PCR Pending Vitals: Last Vital Signs Temp 97.9 F 03/14/21 07:20 Pulse 75 03/14/21 07:20 Resp 15 03/14/21 07:20 BP 117/85 03/14/21 07:20 Pulse Ox 98 03/14/21 07:20 Discharge Plan Discharge Patient Disposition: Home Condition: Stable Prescriptions: New amlodipine 5 mg Tablet 5 mg PO DAILY Qty: 30 RF: 0 divalproex 500 mg Tablet,Delayed Release (Dr/Ec) 500 mg PO DAILY 30 Days Qty: 30 RF: 0 divalproex 500 mg Tablet,Delayed Release (Dr/Ec) 1,000 mg PO QPM 30 Days Qty: 60 RF: 0 nitroglycerin 0.4 mg Tablet, Sublingual 0.4 mg sublingual Q5M PRN (Reason: Chest Pain) Qty: 30 RF: 0 Continued metoprolol tartrate 25 mg tablet 25 mg PO BID Qty: 180 RF: 3 allopurinol 100 mg tablet 100 mg PO DAILY RF: 0 venlafaxine 75 mg capsule,extended release 24hr 75 mg PO DAILY RF: 0 omeprazole 40 mg capsule,delayed release(DR/EC) 40 mg PO BID RF: 0 aspirin 81 mg Tablet,Delayed Release (Dr/Ec) 81 mg PO DAILY RF: 0 mirtazapine 15 mg tablet 15 mg PO BEDTIME RF: 0 Symbicort 160-4.5 mcg/actuation HFA aerosol inhaler 1 puff INHALATION BID RF: 0 Discharge Orders: Discharge Order (Routine); Ordered 03/14/21 Ordered By: Shobha Martin Referrals: Hernan Boland M.D [Physician] - 2 weeks (Follow-up at the [facility] if you have not heard from them by Tuesday or Tuesday afternoon for hospital follow-up. Please call [phone]. Thank You.) Juana Landeros PA [Primary Care Provider] - 4-7 days (Follow-up at [facility] if you have not heard from them by Tuesday or Tuesday afternoon for hospital follow-up. Please call [phone]. Thank You.) Discharge Diet: Cardiac Discharge Activity: Increase activity as tolerated Patient Instructions: Nitroglycerin (By mouth), Amlodipine (By mouth), Left Heart Catheterization (DC), Hypertension (DC), Chest Pain Stoplight, Opioid Safety, Post Angiogram Home Care Instructions Activity Restrictions/Additional Instructions: Please check your blood pressure at home. Buy a blood pressure device so you know what blood pressure measurements you are at baseline. Keep a record of your blood pressure at home and bring to your follow-up appointments with your doctors so they are informed. If you have any worsening of chest pain without any relief from Nitro please call 911 and come to [facility] Discharge Attestations Time Spent in Discharge Care*: greater than 30 min Specific Discharge Activities: educating patient, educating and/or supporting family/caregiver, discussing with pcp/other providers, discussing with briefcase sewer/social workers/dc planners, documenting/other paperwork and evaluating patient/reviewing data Status at Discharge: Cognitive status at discharge: cognitively intact , Behavioral status at discharge: cooperative , Functional status at discharge: independent ambulation Overall status at discharge: patient is back to baseline Quality Metrics Clinical Quality Measures During this hospital stay, did patient experience: None Coding Level of Care Code Acute Chg FW DC note Diagnoses Chest pain I20.0 Chest pain type: chest pain due to myocardial ischemia Ischemic chest pain type: unstable angina pectoris Accelerated hypertension I10 Obstructive sleep apnea G47.33 GERD (gastroesophageal reflux disease) K21.00 Esophagitis bleeding: without hemorrhage Esophagitis presence: with esophagitis Morbid obesity E66.01
[2021-03-14 13:42] VITALS: BP 120/95; PULSE 67; RESP 18; TEMP 36.6
--- NOTE | 2021-03-14 13:45 | PC.NURSE ---
Discharge to home Instructed pt to follow-up w/ family doctor and bmx rider. Pt stated he has an appointment on his pcp on the . Pt stated he will keep the appointment. Educated pt and SO on his new meds actions, dosing, timing and possible side effects, continued meds. Instructed pt to check his BP at home and keep a log of it. Discharge packet given to pt.
[2021-03-17 09:31] LABS: Coronavirus Test Green County Not Detected
--- NOTE | 2021-03-19 09:04 | PC.SOCIAL ---
follow up discharge phone call made, patient taking new prescriptions as directed. Has follow up appointments made with pcp and cardiology.
== END 2021-03-14 13:43 | disposition home or self-care (01) | DRG 287 ==
LOC: ER 03:50 → CSU 12:56
PROVIDERS: Internal Medicine; Internal Medicine Cardiovascular Disease; Admitting Provider Student in an Organized Health Care Education/Training Program; Emergency Provider Emergency Medicine; PCP Physician Assistant; Visit Provider Hospitalist
DX: I20.0 Unstable angina (principal); Z68.41 Body mass index [BMI] 40.0-44.9, adult; I25.9 Chronic ischemic heart disease, unspecified; I10 Essential (primary) hypertension; E66.01 Morbid (severe) obesity due to excess calories; K21.00 Gastro-esophageal reflux disease with esophagitis, without bleeding; M54.5 Low back pain; Z20.822 Contact with and (suspected) exposure to COVID-19; Z82.49 Family history of ischemic heart disease and other diseases of the circulatory system; Z87.39 Personal history of other diseases of the musculoskeletal system and connective tissue; Z90.49 Acquired absence of other specified parts of digestive tract; Z87.891 Personal history of nicotine dependence; Z88.8 Allergy status to other drugs, medicaments and biological substances; Z79.82 Long term (current) use of aspirin
CPT/HCPCS: 36415; 71045; 80048; 80053; 80061; 83036; 84443; 84484; 85025; 85378; 87635; 93005; 93306; 93454; 94660; 96372; 99291; C1769; C1887; C1894; J1644; J1650; J2250; J3010; J3490; Q9967

== ENCOUNTER 2021-03-31 10:09 | Emergency (ER) | payer MEDICAID, SELFPAY ==
[2021-03-31 10:30] VITALS: BP 140/120; PULSE 98; RESP 18; TEMP 36.4; O2SAT 97; BMI 43.4
--- NOTE | 2021-03-31 10:38 | XRR_ITS ---
PROCEDURE INFORMATION: Exam: XR Right Foot Exam date and time: 03/31/2021 10:38 AM Age: 41 years old Clinical indication: Pain; Swelling, leg or foot; Right TECHNIQUE: Imaging protocol: XR Right foot. Views: 3 or more views. COMPARISON: No relevant prior studies available. FINDINGS: Bones/joints: Hindfoot-midfoot and midfoot-forefoot articulations normal. Metatarsals and phalanges without an acute process. Subtalar and tibiotalar joint normal. Mild degenerative changes at the first metatarsal phalangeal joint. Mild soft tissue swelling about the joint space medially. Soft tissues: See Bones/joints finding. XR/XR foot RT min 3V* [id number] IMPRESSION: Mild degenerative changes at the first metatarsal phalangeal joint. Mild soft tissue swelling about the joint space medially.
[2021-03-31] MEDS: ketorolac 60 mg/2 mL INJ IM (11:10)
[2021-03-31 11:18] VITALS: BP 149/108; PULSE 100; O2SAT 94
--- NOTE | 2021-03-31 11:24 | W.ED.EXTPRO ---
HPI - Extremity Problem General: Chief complaint: Extremity Problem,Nontraumatic Stated complaint: RLE PAIN/SWELLING: DX W/GOUT Time Seen by Provider: 03/31/21 10:16 History of Present Illness: HPI Narrative: 41-year-old male presents emergency room with complaints of right foot pain. Is a history of gout usually takes allopurinol. Has not had any recent changes in dose or missed any doses. He has not had any fever sweats chills. He has pain at the right first metatarsal joint to light touch there is some mild swelling and erythema. In the past he has had difficulty with NSAIDs specifically indomethacin having renal side effects. MD Complaint: joint swelling and joint pain Onset (ago): day(s) Pain Consistency: constant Location: right and lower extremity Quality: sharp Radiation: none Relieving factors: rest Exacerbating factors: weight bearing and palpation Associated symptoms: Deny arthralgias, chest pain, fever(s), myalgias, rash or short of breath Review of Systems Const: Denies: fever(s) ENMT: Denies: throat pain, ear or mastoid pain, nasal discharge or nasal congestion Card: Denies: chest pain Resp: Denies: dyspnea, productive cough or non-productive cough GI: Denies: abdominal pain, nausea, vomiting, hematemesis, coffee ground emesis, diarrhea, constipation, bloating, hematochezia or melena : Denies: flank pain, dysuria, urinary frequency or urinary urgency Skin/Breast: Denies: rash PFSH ED PFSH: Medical History Cannabis dependence, uncomplicated Chronic bilateral low back pain with bilateral sciatica Depression with anxiety Generalized anxiety disorder GERD (gastroesophageal reflux disease) Gout Gout flare Gout, arthritis High risk medication use Hyperuricemia Morbid obesity Panic disorder [episodic paroxysmal anxiety] Post-traumatic stress disorder, chronic PTSD (post-traumatic stress disorder) Reflux esophagitis Sleep apnea Surgical History H/O toe surgery History of cholecystectomy History of circumcision History of esophagogastroduodenoscopy (EGD) (~01/2019) History of sinus surgery Hx of appendectomy Hx of tonsillectomy Family History Other Cancer Diabetes Hyperlipidemia Hypertension Denies family history of Anesthesia complication Bleeding disorder Social History Smoking and tobacco status: former smoker Quit status (tobacco): quit date established Alcohol intake: never History of recent travel: No Physical Exam Const: COMMON NORMALS: no acute distress GENERAL APPEARANCE: cooperative and comfortable ORIENTATION/CONSCIOUSNESS: Yes awake, Yes oriented to person, Yes oriented to place and Yes oriented to time HENMT: COMMON NORMALS: normocephalic, atraumatic and hearing grossly normal bilaterally HEAD & SCALP: normocephalic and atraumatic Neck/C-Spine: COMMON NORMALS: no JVD Resp: COMMON NORMALS: normal respiratory effort, No retractions, No use of accessory muscles and clear to auscultation bilaterally AUSCULTATION: clear to auscultation bilaterally Cardio: COMMON NORMALS: no JVD, regular rate, regular rhythm and No murmurs present (Cardio) RATE: regular rate RHYTHM: regular rhythm GI: COMMON NORMALS: Soft to palpation and No hepatosplenomegaly present AUSCULTATION: Yes normoactive bowel sounds PALPATION: Yes Soft to palpation, No Tenderness to palpation present (GI), No Guarding due to palpation present (GI) and Yes No hepatosplenomegaly present Extremity: NARRATIVE EXTREMITY EXAM: Mild swelling of the right first MP joint. There is mild erythema no induration no evidence of infection. Exquisitely tender to the touch consistent with gout Neuro: SENSORIUM/ORIENTATION: Yes oriented to person, Yes oriented to place and Yes oriented to time Skin: COMMON NORMALS: no rashes or lesions noted GENERAL SKIN EXAM: no rashes or lesions noted Course Vital Signs: Vital signs: Vital Signs Temperature 97.6 F 03/31/21 10:30 Pulse Rate 100 03/31/21 11:18 Respiratory Rate 18 03/31/21 10:30 Blood Pressure 149/108 03/31/21 11:18 Pulse Oximetry 94 03/31/21 11:18 MDM - Extremity (Nontraumatic) MDM Narrative: Medical decision making narrative: X-ray is unremarkable. We will repeat started on prednisone and diclofenac since he did not tolerate indomethacin well in the past. He was given Solu-Medrol injection here and also ketorolac. Discharge Plan Discharge Patient Disposition: Home Clinical Impression: Gout Condition: Stable Prescriptions: New prednisone 20 mg tablet 20 mg PO TID Qty: 18 RF: 0 diclofenac sodium 75 mg tablet,delayed release (DR/EC) 75 mg PO Q12H PRN (Reason: pain) Qty: 20 RF: 0 No Action metoprolol tartrate 25 mg tablet 25 mg PO BID Qty: 180 RF: 3 allopurinol 100 mg tablet 100 mg PO DAILY RF: 0 venlafaxine 75 mg capsule,extended release 24hr 75 mg PO DAILY RF: 0 omeprazole 40 mg capsule,delayed release(DR/EC) 40 mg PO BID RF: 0 aspirin 81 mg Tablet,Delayed Release (Dr/Ec) 81 mg PO DAILY RF: 0 mirtazapine 15 mg tablet 15 mg PO BEDTIME RF: 0 Symbicort 160-4.5 mcg/actuation HFA aerosol inhaler 1 puff INHALATION BID RF: 0 amlodipine 5 mg Tablet 5 mg PO DAILY Qty: 30 RF: 0 divalproex 500 mg Tablet,Delayed Release (Dr/Ec) 500 mg PO DAILY 30 Days Qty: 30 RF: 0 divalproex 500 mg Tablet,Delayed Release (Dr/Ec) 1,000 mg PO QPM 30 Days Qty: 60 RF: 0 nitroglycerin 0.4 mg Tablet, Sublingual 0.4 mg sublingual Q5M PRN (Reason: Chest Pain) Qty: 30 RF: 0 Discharge Orders: Discharge ED (Routine); Ordered 03/31/21 Ordered By: Severo Duron Referrals: Juana Landeros PA [Primary Care Provider] - Patient Instructions: Opioid Safety Activity Restrictions/Additional Instructions: Follow-up for recheck with your primary care doctor in the next 2 days to recheck your kidney function. Coding Level of Care Code ED Brewmaster for Tobias Alvarez
[2021-03-31 11:49] VITALS: BP 149/108; PULSE 100; O2SAT 94
== END 2021-03-31 11:50 | disposition home or self-care (01) ==
PROVIDERS: Emergency Provider Family Medicine; PCP Physician Assistant
DX: M10.9 Gout, unspecified (principal); E66.01 Morbid (severe) obesity due to excess calories; Z87.891 Personal history of nicotine dependence; Z68.41 Body mass index [BMI] 40.0-44.9, adult
CPT/HCPCS: 73630; 96372; 99283; J1885; J2930

== ENCOUNTER → 2021-06-03 09:57 | Outpatient (BNVA) | payer MEDICAID, SELFPAY | PROVIDERS: PCP Physician Assistant; Referring Provider Physician Assistant; Visit Provider Specialist | DX: R53.1 Weakness (principal); R29.6 Repeated falls; M79.2 Neuralgia and neuritis, unspecified; F41.1 Generalized anxiety disorder; F43.12 Post-traumatic stress disorder, chronic; G47.33 Obstructive sleep apnea (adult) (pediatric); E66.01 Morbid (severe) obesity due to excess calories; Z68.41 Body mass index [BMI] 40.0-44.9, adult; F17.200 Nicotine dependence, unspecified, uncomplicated | CPT/HCPCS: 99204; 99205 ==

== ENCOUNTER 2021-07-17 08:22 | Inpatient (IN) | payer MEDICAID, SELFPAY ==
[2021-07-17 08:26] VITALS: BP 151/102; PULSE 105; RESP 22; O2SAT 97; BMI 43.4
--- NOTE | 2021-07-17 08:54 | ED.C_ITS ---
Documented by User: ALEXANDR Arredondo 07/17/21 11:05 HPI - Psych General: Chief Complaint: Psychiatric Symptoms Stated Complaint: si Time Seen by Provider: 07/17/21 08:28 History of Present Illness: HPI Narrative: Patient is a 41-year-old male comes to the ED with SI. He has a past medical history of GERD, sleep apnea, hypertension, panic disorder, anxiety, PTSD and bipolar. Patient says he has not been on his medications for over 2 weeks. Patient said he has had a lot of stressful things happen in his life and his mother just recently . He says he does not have a lot of confidence in himself and feels like he is at a b reaking point. Today he was going to go out in [place] with some shorts and shirt and no supplies and let himself out in the wilderness. He decided to come here to the ED so he can get help. He is leery of being on any medications. He also reports hearing some voices. Associated symptoms: Reports auditory hallucinations, depression and suicidal ideation Review of Systems Const: Denies: fever(s), chills or fatigue Eyes: Denies: change in vision or eye discomfort ENMT: Denies: throat pain, odynophagia, nasal discharge or nasal congestion Card: Denies: chest pain, palpitations, edema, swelling of feet/ankles, dyspnea on exertion or orthopnea Resp: Denies: dyspnea, productive cough or non-productive cough GI: Denies: abdominal pain, nausea, vomiting, diarrhea, constipation or hematochezia : Denies: flank pain, difficulty urinating, dysuria or hematuria Musc: Denies: neck pain, back pain or extremity swelling Skin/Breast: Denies: rash or new lesions Neuro: Denies: headache(s), numbness in extremities or weakness in extremities Psych: Reports: anxiety, depression, auditory hallucinations and suicidal ideation PFS ED PFSH: Medical History Cannabis dependence, uncomplicated Chronic bilateral low back pain with bilateral sciatica Depression with anxiety Generalized anxiety disorder GERD (gastroesophageal reflux disease) Gout Gout flare Gout, arthritis High risk medication use Hyperuricemia Morbid obesity Panic disorder [episodic paroxysmal anxiety] Post-traumatic stress disorder, chronic PTSD (post-traumatic stress disorder) Reflux esophagitis Sleep apnea Surgical History H/O toe surgery History of cholecystectomy History of circumcision History of esophagogastroduodenoscopy (EGD) (~01/2019) History of sinus surgery Hx of appendectomy Hx of tonsillectomy Family History Other Cancer Diabetes Hyperlipidemia Hypertension Denies family history of Anesthesia complication Bleeding disorder Social History Smoking and tobacco status: former smoker Quit status (tobacco): quit date established Alcohol intake: never History of recent travel: No Physical Exam Const: COMMON NORMALS: patient oriented x3 and alert GENERAL APPEARANCE: cooperative and anxious HENMT: COMMON NORMALS: normocephalic HEAD & SCALP: normocephalic MOUTH: Normal oral and palatal mucosa present THROAT: posterior oropharynx normal and uvula midline Neck/C-Spine: COMMON NORMALS: supple GENERAL: Yes normal visual inspection Resp: COMMON NORMALS: normal respiratory effort, No retractions, No use of accessory muscles and clear to auscultation bilaterally AUSCULTATION: clear to auscultation bilaterally Cardio: COMMON NORMALS: regular rate, regular rhythm, S1 normal heart sound present, S2 normal heart sound present, No gallops present (Cardio), No clicks present (Cardio), No murmurs present (Cardio) and Peripheral pulses 2+ throughout RATE: regular rate RHYTHM: regular rhythm HEART SOUNDS: S1 normal heart sound present and S2 normal heart sound present PERIPHERAL PULSES: Peripheral pulses 2+ throughout GI: COMMON NORMALS: Normal to inspection, nondistended, normoactive bowel sounds present, Soft to palpation, non-tender and no masses PALPATION: Yes Soft to palpation : COMMON NORMALS: Yes no CVA tenderness BLADDER/KIDNEY EXAM: Yes no CVA tenderness Back/Pelvis: COMMON NORMALS: no CVA tenderness Neuro: COMMON NORMALS: patient oriented x3 and moves all extremities SENSORIUM/ORIENTATION: Yes alert Psych: APPEARANCE: Yes grossly normal ATTITUDE: Yes engaged ACTIVITY/MOTOR BEHAVIOR: Yes appropriate eye contact SPEECH: Yes excessive and Yes rapid MOOD & AFFECT: Yes elevated mood and Yes anxious THOUGHT CONTENT: Yes Suicidality present and Yes Hallucination(s) present auditory ATTENTION/CONCENTRATION: Yes attention grossly intact and Yes concentration grossly intact MEMORY/COGNITION: Yes memory grossly intact and Yes cognition grossly intact INSIGHT: Fair insight present (Psych) JUDGEMENT: Fair judgement present (Psych) Skin: GENERAL SKIN EXAM: dry skin Course Consultations: Consultation #1: I contacted Dr. Szymanski the psych doctor carton counter feeder and told him about patient case. He agreed to have patient admitted into the [facility]. He also wanted me to have an affidavit and written out on file for patient. Time: 10:22 Vital Signs: Vital signs: Vital Signs Temperature 97.4 F L 07/18/21 07:57 Pulse Rate 97 07/18/21 07:57 Respiratory Rate 15 07/18/21 07:57 Blood Pressure 142/65 07/18/21 07:57 Pulse Oximetry 96 07/18/21 07:57 MDM - Psych MDM Narrative: Medical decision making narrative: Patient is a 41-year-old male comes to the ED with SI. Patient has a history of bipolar disorder, PTSD, anxiety and depression. He is not currently taking his medications and says has been off them for over 2 weeks. Patient also complained of having some auditory hallucinations as well. Patient is cooperative here on the unit but is very anxious has an elevated move and rapid/excessive speech. His plan for SI was to go out [place] the [place] and they will let himself of exposure. Denies any other complaints. Psych prescreening labs performed. I contacted Dr. Szymanski and told him about patient's case and he agreed to have patient admitted into the N[facility]. Patient had elevated blood pressure of 144/110 here in the ED and he said he has not been taking his blood pressure medications. Ordered patient 5 mg of amlodipine and 10 mg of lisinopril here in the ED for his blood pressure. I also filled out an affidavit and place it in his chart. patient medically cleared and orders will be placed by Dr. Duron to have patient admitted into the N[facility]. Lab Data: Attestation: I reviewed the patient's lab results. Labs: Lab Results 07/17/21 07/17/21 07/17/21 09:25 09:25 10:05 WBC 17.3 10^3/uL H 10 ^3/uL (4.0-10.0) RBC 5.69 10^6/uL H 10 ^6/uL (4.1-5.3) Hgb 16.4 g/dL g/dL (11.7-16.6) Hct 50.1 % % (42.0-52.0) MCV 88.0 fl fl (80-94) MCH 28.8 pg pg (28.0-34.0) MCHC 32.7 g/dL g/dL (30.0-36.0) RDW 14.3 % % (12.1-15.1) Plt Count 344 10^3/cmm 10^3 /cmm (130-400) MPV 10.7 fL H fL (7.4-10.4) Neut % (Auto) 72.4 % % Lymph % (Auto) 17.7 % % [place] % (Auto) 8.6 % % Eos % (Auto) 0.1 % % Baso % (Auto) 0.8 % % Neut # (Auto) 12.49 10^3/uL H 1 0^3/uL (1.8-7.7) Lymph # (Auto) 3.1 10^3/uL 10^3/ uL (0.8-4.8) [place] # (Auto) 1.5 10^3/uL H 10^ 3/uL (0.2-0.9) Eos # (Auto) 0.0 10^3/uL 10^3/ uL (0.0-0.8) Baso # (Auto) 0.1 10^3/uL 10^3/ uL (0.0-0.1) Nucleated RBC % (a uto) 0 % % Nucleated RBCs # 0.0 /100WBC /100W BC Sodium 139 mmol/L mmol/L (136-145) Potassium 3.7 mmol/L mmol/L (3.5-5.1) Chloride 99 mmol/L mmol/L (98-107) Carbon Dioxide 22 mmol/L mmol/L (22-29) Anion Gap 21.7 H (5-19) BUN 11 mg/dL mg/dL (6-20) Creatinine 0.9 mg/dL mg/dL (0.7-1.2) GFR Calculation 93.0 mL/min mL/mi n (90-130) Glucose 102 mg/dL mg/dL (65-115) Calculated Osmolal ity 288 mOsm/kg mOsm/ kg (285-295) Calcium 8.6 mg/dL mg/dL (8.5-10.5) Total Bilirubin 0.5 mg/dL mg/dL (0.15-1.2) AST 23 U/L U/L (0-40) ALT 30 U/L U/L (0-41) Alkaline Phosphata se 72 IU/L IU/L (40-130) Total Protein 7.4 g/dL g/dL (6.6-8.7) Albumin 4.5 g/dL g/dL (3.5-5.2) Globulin 2.9 g/dL g/dL (1.3-4.6) Urine Color Yellow (Yellow) Urine Appearance Clear (CLEAR) Urine pH 6 (5-7) Ur Specific Gravit y 1.015 (1.005-1.030) Urine Protein Neg (Negative) Urine Glucose (UA) Norm (Normal) Urine Ketones Negative (Negative) Urine Blood Neg (Negative) Urine Nitrate Negative (Negative) Urine Bilirubin Neg (Negative) Urine Urobilinogen Norm mg/dL mg/dL (Negative) Ur Leukocyte Keiry ase Negative (Negative) Salicylates < 0.3 mg/dL L mg/ dL (3-10) Urine Opiates Scre en Acetaminophen < 5.0 ug/mL L ug/ mL (10-30) Ur Barbiturates Sc reen Ur Phencyclidine S crn Ur Amphetamines Sc reen U Benzodiazepines Scrn Urine Cocaine Scre en U Marijuana (THC) Screen Ethyl Alcohol < 10 mg/dL mg/dL (0-10) 07/17/21 10:05 WBC RBC Hgb Hct MCV MCH MCHC RDW Plt Count MPV Neut % (Auto) Lymph % (Auto) [place] % (Auto) Eos % (Auto) Baso % (Auto) Neut # (Auto) Lymph # (Auto) [place] # (Auto) Eos # (Auto) Baso # (Auto) Nucleated RBC % (a uto) Nucleated RBCs # Sodium Potassium Chloride Carbon Dioxide Anion Gap BUN Creatinine GFR Calculation Glucose Calculated Osmolal ity Calcium Total Bilirubin AST ALT Alkaline Phosphata se Total Protein Albumin Globulin Urine Color Urine Appearance Urine pH Ur Specific Gravit y Urine Protein Urine Glucose (UA) Urine Ketones Urine Blood Urine Nitrate Urine Bilirubin Urine Urobilinogen Ur Leukocyte Keiry ase Salicylates Urine Opiates Scre en Positive ng/mL H ng/mL (Negative) Acetaminophen Ur Barbiturates Sc reen Negative ng/mL ng /mL (Negative) Ur Phencyclidine S crn Negative ng/mL ng /mL (Negative) Ur Amphetamines Sc reen Negative ng/mL ng /mL (Negative) U Benzodiazepines Scrn Negative ng/mL ng /mL (Negative) Urine Cocaine Scre en Negative ng/mL ng /mL (Negative) U Marijuana (THC) Screen Positive ng/mL H ng/mL (Negative) Ethyl Alcohol Discharge Plan Discharge Patient Disposition: Admitted As Inpatient Admit Provider: Yvan Rodriguez Clinical Impression: Suicidal ideation Condition: Stable Discharge Diet: Regular Discharge Activity: Resume usual activity Coding Level of Care Code ED Special Education Paraeducator for Chg Fwd Exam Comprehensive Documented by User: Severo Duron DO 07/20/21 06:41 HPI - Psych General: Chief Complaint: Psychiatric Symptoms Stated Complaint: si Time Seen by Provider: 07/17/21 08:28 PFSH ED PFSH: Medical History Cannabis dependence, uncomplicated Chronic bilateral low back pain with bilateral sciatica Depression with anxiety Generalized anxiety disorder GERD (gastroesophageal reflux disease) Gout Gout flare Gout, arthritis High risk medication use Hyperuricemia Morbid obesity Panic disorder [episodic paroxysmal anxiety] Post-traumatic stress disorder, chronic PTSD (post-traumatic stress disorder) Reflux esophagitis Sleep apnea Surgical History H/O toe surgery History of cholecystectomy History of circumcision History of esophagogastroduodenoscopy (EGD) (~01/2019) History of sinus surgery Hx of appendectomy Hx of tonsillectomy Family History Other Cancer Diabetes Hyperlipidemia Hypertension Denies family history of Anesthesia complication Bleeding disorder Social History Smoking and tobacco status: former smoker Quit status (tobacco): quit date established Alcohol intake: never History of recent travel: No Course Vital Signs: Vital signs: Vital Signs Temperature 97.4 F L 07/18/21 07:57 Pulse Rate 97 07/18/21 07:57 Respiratory Rate 15 07/18/21 07:57 Blood Pressure 142/65 07/18/21 07:57 Pulse Oximetry 96 07/18/21 07:57 MDM - Psych MDM Narrative: Medical decision making narrative: patient seen and evaluated. He is still expressing suicidal ideation. We will go ahead and admit orders written chart reviewed and patient discussed with midlevel. Agree with assessment and plan.. Lab Data: Labs: Lab Results 07/17/21 07/17/21 07/17/21 09:25 09:25 10:05 WBC 17.3 10^3/uL H 10 ^3/uL (4.0-10.0) RBC 5.69 10^6/uL H 10 ^6/uL (4.1-5.3) Hgb 16.4 g/dL g/dL (11.7-16.6) Hct 50.1 % % (42.0-52.0) MCV 88.0 fl fl (80-94) MCH 28.8 pg pg (28.0-34.0) MCHC 32.7 g/dL g/dL (30.0-36.0) RDW 14.3 % % (12.1-15.1) Plt Count 344 10^3/cmm 10^3 /cmm (130-400) MPV 10.7 fL H fL (7.4-10.4) Neut % (Auto) 72.4 % % Lymph % (Auto) 17.7 % % [place] % (Auto) 8.6 % % Eos % (Auto) 0.1 % % Baso % (Auto) 0.8 % % Neut # (Auto) 12.49 10^3/uL H 1 0^3/uL (1.8-7.7) Lymph # (Auto) 3.1 10^3/uL 10^3/ uL (0.8-4.8) [place] # (Auto) 1.5 10^3/uL H 10^ 3/uL (0.2-0.9) Eos # (Auto) 0.0 10^3/uL 10^3/ uL (0.0-0.8) Baso # (Auto) 0.1 10^3/uL 10^3/ uL (0.0-0.1) Nucleated RBC % (a uto) 0 % % Nucleated RBCs # 0.0 /100WBC /100W BC Sodium 139 mmol/L mmol/L (136-145) Potassium 3.7 mmol/L mmol/L (3.5-5.1) Chloride 99 mmol/L mmol/L (98-107) Carbon Dioxide 22 mmol/L mmol/L (22-29) Anion Gap 21.7 H (5-19) BUN 11 mg/dL mg/dL (6-20) Creatinine 0.9 mg/dL mg/dL (0.7-1.2) GFR Calculation 93.0 mL/min mL/mi n (90-130) Glucose 102 mg/dL mg/dL (65-115) Calculated Osmolal ity 288 mOsm/kg mOsm/ kg (285-295) Calcium 8.6 mg/dL mg/dL (8.5-10.5) Total Bilirubin 0.5 mg/dL mg/dL (0.15-1.2) AST 23 U/L U/L (0-40) ALT 30 U/L U/L (0-41) Alkaline Phosphata se 72 IU/L IU/L (40-130) Total Protein 7.4 g/dL g/dL (6.6-8.7) Albumin 4.5 g/dL g/dL (3.5-5.2) Globulin 2.9 g/dL g/dL (1.3-4.6) Urine Color Yellow (Yellow) Urine Appearance Clear (CLEAR) Urine pH 6 (5-7) Ur Specific Gravit y 1.015 (1.005-1.030) Urine Protein Neg (Negative) Urine Glucose (UA) Norm (Normal) Urine Ketones Negative (Negative) Urine Blood Neg (Negative) Urine Nitrate Negative (Negative) Urine Bilirubin Neg (Negative) Urine Urobilinogen Norm mg/dL mg/dL (Negative) Ur Leukocyte Keiry ase Negative (Negative) Salicylates < 0.3 mg/dL L mg/ dL (3-10) Urine Opiates Scre en Acetaminophen < 5.0 ug/mL L ug/ mL (10-30) Ur Barbiturates Sc reen Ur Phencyclidine S crn Ur Amphetamines Sc reen U Benzodiazepines Scrn Urine Cocaine Scre en U Marijuana (THC) Screen Ethyl Alcohol < 10 mg/dL mg/dL (0-10) 07/17/21 10:05 WBC RBC Hgb Hct MCV MCH MCHC RDW Plt Count MPV Neut % (Auto) Lymph % (Auto) [place] % (Auto) Eos % (Auto) Baso % (Auto) Neut # (Auto) Lymph # (Auto) [place] # (Auto) Eos # (Auto) Baso # (Auto) Nucleated RBC % (a uto) Nucleated RBCs # Sodium Potassium Chloride Carbon Dioxide Anion Gap BUN Creatinine GFR Calculation Glucose Calculated Osmolal ity Calcium Total Bilirubin AST ALT Alkaline Phosphata se Total Protein Albumin Globulin Urine Color Urine Appearance Urine pH Ur Specific Gravit y Urine Protein Urine Glucose (UA) Urine Ketones Urine Blood Urine Nitrate Urine Bilirubin Urine Urobilinogen Ur Leukocyte Keiry ase Salicylates Urine Opiates Scre en Positive ng/mL H ng/mL (Negative) Acetaminophen Ur Barbiturates Sc reen Negative ng/mL ng /mL (Negative) Ur Phencyclidine S crn Negative ng/mL ng /mL (Negative) Ur Amphetamines Sc reen Negative ng/mL ng /mL (Negative) U Benzodiazepines Scrn Negative ng/mL ng /mL (Negative) Urine Cocaine Scre en Negative ng/mL ng /mL (Negative) U Marijuana (THC) Screen Positive ng/mL H ng/mL (Negative) Ethyl Alcohol Discharge Plan Discharge Patient Disposition: Admitted As Inpatient Admit Provider: Yvan Rodriguez Clinical Impression: Suicidal ideation Condition: Stable Discharge Diet: Regular Discharge Activity: Resume usual activity Coding Level of Care Code ED Special Education Paraeducator for Tobias Fwd Exam Comprehensive
[2021-07-17 09:44] LABS: Basophils # 0.1 10^3/uL (0.0-0.1); Basophils % 0.8 %; Eosinophils % 0.1 %; Hematocrit 50.1 % (42.0-52.0); Hemoglobin 16.4 g/dL (11.7-16.6); Lymphocytes # 3.1 10^3/uL (0.8-4.8); Lymphocytes % 17.7 %; Mean Corpuscular HGB Conc 32.7 g/dL (30.0-36.0); Mean Corpuscular Hemoglobin 28.8 pg (28.0-34.0); Mean Platelet Volume 10.7 fL (7.4-10.4); Monocytes # 1.5 10^3/uL (0.2-0.9); Monocytes % 8.6 %; Neutrophils # 12.49 10^3/uL (1.8-7.7); Neutrophils % 72.4 %; Nucleated Red Blood Cells % 0 %; Platelet Count 344 10^3/cmm (130-400); Red Blood Count 5.69 10^6/uL (4.1-5.3); Red Cell Distribution Width 14.3 % (12.1-15.1); White Blood Count 17.3 10^3/uL (4.0-10.0)
[2021-07-17 09:52] LABS: Alanine Aminotransferase 30 U/L (0-41); Albumin Level 4.5 g/dL (3.5-5.2); Alkaline Phosphatase 72 IU/L (40-130); Anion Gap 21.7 (5-19); Aspartate Amino Transferase 23 U/L (0-40); Blood Urea Nitrogen 11 mg/dL (6-20); Calcium 8.6 mg/dL (8.5-10.5); Carbon Dioxide 22 mmol/L (22-29); Chloride 99 mmol/L (98-107); Globulin 2.9 g/dL (1.3-4.6); Glucose 102 mg/dL (65-115); Osmolality Calculated 288 mOsm/kg (285-295); Potassium 3.7 mmol/L (3.5-5.1); Sodium 139 mmol/L (136-145); Total Bilirubin 0.5 mg/dL (0.15-1.2); Total Protein 7.4 g/dL (6.6-8.7)
[2021-07-17 09:53] VITALS: BP 144/110; PULSE 106; RESP 18; TEMP 36.6; O2SAT 96
[2021-07-17 09:55] LABS: Acetaminophen < 5.0 ug/mL (10-30); Alcohol Level < 10 mg/dL (0-10); Salicylate < 0.3 mg/dL (3-10)
[2021-07-17 10:34] LABS: Add Urine Microscopic? NO; Charge for UA Resulting for Rev
[2021-07-17 10:47] LABS: Bilirubin Urine Neg (Negative); Blood Urine Neg (Negative); Glucose Urine UA Norm (Normal); Ketones Urine Negative (Negative); Leukocyte Esterase Urine Negative (Negative); Nitrate Urine Negative (Negative); Protein Urine Neg (Negative); Specific Gravity, Urine 1.015 (1.005-1.030); Urine Appearance Clear (CLEAR); Urine Color Yellow (Yellow); Urobilinogen Urine Norm (Negative); pH Urine 6 (5-7)
[2021-07-17 10:56] LABS: Amphetamines Screen Urine Negative (Negative); Barbiturates Screen Urine Negative (Negative); Benzodiazepines Screen Urine Negative (Negative); Cocaine Screen Urine Negative (Negative); Opiate Screen Urine Positive (Negative); PCP Screen Urine Negative (Negative); THC Screen Urine Positive (Negative)
[2021-07-17] MEDS: amlodipine 5 mg Tablet PO (11:25)
[2021-07-17] MEDS: lisinopril 10 mg Tablet PO (11:26)
--- NOTE | 2021-07-17 11:26 | PC.NURSE ---
Pt refusing any and all medication, states he doesnt care what happens to him at this point, maybe if I was actually taking my regular prescribed medication I would, but nope, not taking them . Dr. Duron advised
--- NOTE | 2021-07-17 12:41 | PC.NURSE ---
attempt to call report to floor, no answer
--- NOTE | 2021-07-17 12:43 | PC.NURSE ---
2nd attempt to call report to [facility], JUAN Yonug
[2021-07-17 14:39] VITALS: BP 126/91; PULSE 96; RESP 20; TEMP 36.3; O2SAT 95
[2021-07-17 20:42] VITALS: BP 139/86; PULSE 79; RESP 16; TEMP 36.6; O2SAT 98
[2021-07-17 21:48] VITALS: PULSE 93; RESP 24; O2SAT 93
[2021-07-17 22:35] VITALS: PULSE 111; RESP 24; O2SAT 93
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
[2021-07-18 06:00] VITALS: BP 142/65; PULSE 97; RESP 15; O2SAT 96
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
[2021-07-18 07:57] VITALS: BP 142/65; PULSE 97; RESP 15; TEMP 36.3; O2SAT 96
== END 2021-07-18 08:10 | disposition home or self-care (01) | DRG 880 ==
LOC: ER 10:48 → NP 12:45
PROVIDERS: Physician Assistant; Admitting Provider Psychiatry & Neurology Psychiatry; Emergency Provider Family Medicine; PCP Physician Assistant; Visit Provider Psychiatry & Neurology Psychiatry
DX: F41.1 Generalized anxiety disorder (principal); R45.851 Suicidal ideations; Z68.41 Body mass index [BMI] 40.0-44.9, adult; F43.12 Post-traumatic stress disorder, chronic; F41.0 Panic disorder [episodic paroxysmal anxiety]; Z91.14 Patient's other noncompliance with medication regimen; F31.9 Bipolar disorder, unspecified; I10 Essential (primary) hypertension; Z79.82 Long term (current) use of aspirin; F12.20 Cannabis dependence, uncomplicated; E66.01 Morbid (severe) obesity due to excess calories; G47.33 Obstructive sleep apnea (adult) (pediatric)
CPT/HCPCS: 80053; 80306; 80307; 81003; 85025; 99285; 99291